=== PATIENT | female | born 1980 | race Caucasian/White ===

== ENCOUNTER 2017-01-20 15:34 | Emergency (ER) | payer OTHER ==
[2017-01-20] MEDS ORDERED: ONDANSETRON 4 MG/2 ML VIAL IVP STA (16:10)
[2017-01-20] MEDS ORDERED: LORazepam 2 MG/ML SYRINGE IV STA ×2 (16:10→17:53)
[2017-01-20] MEDS ORDERED: SODIUM CHLORIDE 0.9% 1,000 ML IV STA (16:10)
[2017-01-20] MEDS ORDERED: THIAMINE 100 MG/ML 2 ML VIAL IM STA (16:10)
[2017-01-20 16:56] LABS: Basophils # (A) 0.1 k/uL (0-0.2); Basophils % (A) 1 %; CH 31.8; CHCM 34.6; Eosinophils # (A) 0.1 k/uL (0-0.7); Eosinophils % (A) 3 %; HCT 43.5 % (34.0-46.0); HDW 2.23; HGB 14.7 gm/dL (11.4-16.0); Luc # (Auto) 0.16; Luc % (Auto) 3; Lymphocytes # (A) 1.8 k/uL (1.0-4.8); Lymphocytes % (A) 32 %; MCH 31.1 pg (25.0-35.0); MCHC 33.7 g/dL (31.0-37.0); MCV 92.2 fL (80.0-100.0); Mean Platelet Volume 6.4; Monocytes # (A) 0.2 k/uL (0-1.0); Monocytes % (A) 4 %; Neutrophils # (A) 3.2 k/uL (1.3-7.7); Neutrophils % (A) 57 %; RBC 4.72 m/uL (3.80-5.40); RDW 12.8 % (11.5-15.5); WBC 5.5 k/uL (3.8-10.6); WBC (Perox) 5.74
[2017-01-20 16:57] LABS: Appearance,Urine Clear (Clear); Bilirubin,Urine Negative (Negative); Glucose,Urine (UA) Negative (Negative); Ketones,Urine Negative (Negative); Leukocyte Esterase,Urine Negative (Negative); Nitrite,Urine Negative (Negative); PH, Urine 5.5 (5.0-8.0); Protein,Urine Negative (Negative); Specific Gravity,Urine 1.003 (1.001-1.035); UA Billing (MACRO vs. MICRO) CHEM; Urobilinogen,Urine <2.0 mg/dL (<2.0)
--- NOTE | 2017-01-20 17:11 | ED ---
Nausea/Vomiting/Diarrhea HPI - General Source: patient, RN notes reviewed Mode of arrival: ambulatory Limitations: no limitations <Jair Wilde - Last Filed: 01/20/17 17:07> <Leo Garcia - Last Filed: 01/20/17 20:42> <Elie Pena - Last Filed: 01/21/17 00:06> - General Chief complaint: Nausea/Vomiting/Diarrhea Stated complaint: Vomiting/Nausea/Anxiety Time Seen by Provider: 01/20/17 16:10 - History of Present Illness Initial comments: 36-year-old female presents emergency Department chief complaint of alcohol withdrawal. Patient states over the last week she's been drinking 15 beers daily. Patient tried to her primary care physician for this though she states that they were not very helpful that they give her Abilify which is not helping. Patient states that she has no known psychiatric problems such as schizophrenia or bipolar disorder. Patient states that she's been vomiting only. This is by drinking more. Patient denies any alcohol use today. Patient states that she is recovering alcoholic. Patient states she relapsed 1 week ago. Patient denies abdominal pain no history of pancreatitis. Patient denies illicit drug use. (Jair Wilde) - Related Data Home Medications Medication Instructions Recorded Confirmed ARIPiprazole [Abilify] 2 mg PO DAILY 01/20/17 01/20/17 Ondansetron Odt [Zofran Odt] 4 - 8 mg PO Q8HR PRN 01/20/17 01/20/17 Vivitrol Injection 380mg 380 mg IM Q28D 01/20/17 01/20/17 Previous Rx's Medication Instructions Recorded LORazepam [Ativan] 1 mg PO TID PRN #8 tab 01/21/17 Allergies Allergy/AdvReac Type Severity Reaction Status Date / Time No Known Allergies Allergy Verified 01/20/17 16:05 Review of Systems ROS Other: All systems not noted in ROS Statement are negative. <Jair Wilde - Last Filed: 01/20/17 17:07> ROS Other: All systems not noted in ROS Statement are negative. <Leo Garcia - Last Filed: 01/20/17 20:42> ROS Other: All systems not noted in ROS Statement are negative. <Elie Pena - Last Filed: 01/21/17 00:06> ROS Statement: Those systems with pertinent positive or pertinent negative responses have been documented in the HPI. Past Medical History Past Medical History: Hyperlipidemia Additional Past Medical History / Comment(s): alcoholic History of Any Multi-Drug Resistant Organisms: None Reported Past Surgical History: No Surgical Hx Reported Past Anesthesia/Blood Transfusion Reactions: No Reported Reaction Past Psychological History: Anxiety, Depression Smoking Status: Current some day smoker Past Alcohol Use History: Abuse, Daily, Heavy Past Drug Use History: None Reported - Past Family History Father Family Medical History: Coronary Artery Disease (CAD) <Jair Wilde M - Last Filed: 01/20/17 17:07> General Exam Limitations: no limitations General appearance: alert, in no apparent distress Head exam: Present: atraumatic, normocephalic, normal inspection Respiratory exam: Present: normal lung sounds bilaterally. Absent: respiratory distress, wheezes, rales, rhonchi, stridor Cardiovascular Exam: Present: normal rhythm, tachycardia, normal heart sounds. Absent: systolic murmur, diastolic murmur, rubs, gallop, clicks GI/Abdominal exam: Present: soft, normal bowel sounds. Absent: distended, tenderness, guarding, rebound, rigid Neurological exam: Present: alert, oriented X3, CN II-XII intact Skin exam: Present: warm, dry, intact, normal color. Absent: rash <Jair Wilde - Last Filed: 01/20/17 17:07> General appearance: alert, in no apparent distress, appears intoxicated Head exam: Present: atraumatic, normocephalic, normal inspection Eye exam: Present: normal appearance, PERRL, EOMI. Absent: scleral icterus, conjunctival injection, periorbital swelling ENT exam: Present: normal exam, mucous membranes moist Neck exam: Present: normal inspection. Absent: tenderness, meningismus, lymphadenopathy Respiratory exam: Present: normal lung sounds bilaterally. Absent: respiratory distress, wheezes, rales, rhonchi, stridor Cardiovascular Exam: Present: regular rate, normal rhythm, normal heart sounds. Absent: systolic murmur, diastolic murmur, rubs, gallop, clicks GI/Abdominal exam: Present: soft, normal bowel sounds. Absent: distended, tenderness, guarding, rebound, rigid Extremities exam: Present: normal inspection, full ROM, normal capillary refill. Absent: tenderness, pedal edema, joint swelling, calf tenderness Back exam: Present: normal inspection Neurological exam: Present: alert, oriented X3, CN II-XII intact Psychiatric exam: Present: normal affect, normal mood Skin exam: Present: warm, dry, intact, normal color. Absent: rash <Leo Garcia - Last Filed: 01/20/17 20:42> Course <Jair Wilde - Last Filed: 01/20/17 17:07> <Leo Garcia - Last Filed: 01/20/17 20:42> <Elie Pena - Last Filed: 01/21/17 00:06> Vital Signs 01/20/17 01/20/17 01/20/17 15:57 16:55 18:33 Temperature 98.2 F 97.9 F 98.5 F Pulse Rate 132 H 117 H 127 H Respiratory 22 18 18 Rate Blood Pressure 123/67 123/74 101/59 O2 Sat by Pulse 95 95 95 Oximetry - Reevaluation(s) Reevaluation #1: 01/20/17 20:42 Patient's, drinking alcohol and she is brought into the emergency room, again patient came in the ER for possible withdrawal (Leo Garcia) Medical Decision Making - Lab Data Result diagrams: 01/20/17 16:39 <Jair Wilde - Last Filed: 01/20/17 17:07> - Lab Data Result diagrams: 01/20/17 16:39 01/20/17 16:39 <Leo Garcia - Last Filed: 01/20/17 20:42> - Lab Data Result diagrams: 01/20/17 16:39 01/20/17 16:39 <Elie Pena - Last Filed: 01/21/17 00:06> - Medical Decision Making Patient reevaluated and resting comfortably in bed. Patient is alert and oriented 3. Steady gait. Patient updated on results and need for follow-up. Patient states she is trying to get into [facility]. (Elie Pena) - Lab Data Lab Results 01/20/17 01/20/17 01/20/17 Range/Units 16:39 16:39 16:39 WBC 5.5 (3.8-10.6) k/uL RBC 4.72 (3.80-5.40) m/uL Hgb 14.7 (11.4-16.0) gm/dL Hct 43.5 (34.0-46.0) % MCV 92.2 (80.0-100.0) fL MCH 31.1 (25.0-35.0) pg MCHC 33.7 (31.0-37.0) g/dL RDW 12.8 (11.5-15.5) % Plt Count 248 (150-450) k/uL Neutrophils % 57 % Lymphocytes % 32 % Monocytes % 4 % Eosinophils % 3 % Basophils % 1 % Neutrophils # 3.2 (1.3-7.7) k/uL Lymphocytes # 1.8 (1.0-4.8) k/uL Monocytes # 0.2 (0-1.0) k/uL Eosinophils # 0.1 (0-0.7) k/uL Basophils # 0.1 (0-0.2) k/uL Sodium 140 (137-145) mmol/L Potassium 4.3 (3.5-5.1) mmol/L Chloride 101 (98-107) mmol/L Carbon Dioxide 21 L (22-30) mmol/L Anion Gap 18 mmol/L BUN 8 (7-17) mg/dL Creatinine 0.67 (0.52-1.04) mg/dL Est GFR (MDRD) Af Amer >60 (>60 ml/min/1.73 sqM) Est GFR (MDRD) Non-Af >60 (>60 ml/min/1.73 sqM) Glucose 133 H (74-99) mg/dL Calcium 9.2 (8.4-10.2) mg/dL Magnesium 1.9 (1.6-2.3) mg/dL Total Bilirubin 0.7 (0.2-1.3) mg/dL AST 43 H (14-36) U/L ALT 32 (9-52) U/L Alkaline Phosphatase 80 (38-126) U/L Total Protein 7.3 (6.3-8.2) g/dL Albumin 4.4 (3.5-5.0) g/dL Amylase 63 (30-110) U/L Lipase 108 (23-300) U/L Urine Color Light Yellow Urine Appearance Clear (Clear) Urine pH 5.5 (5.0-8.0) Ur Specific [place] 1.003 (1.001-1.035) Urine Protein Negative (Negative) Urine Glucose (UA) Negative (Negative) Urine Ketones Negative (Negative) Urine Blood Negative (Negative) Urine Nitrite Negative (Negative) Urine Bilirubin Negative (Negative) Urine Urobilinogen <2.0 (<2.0) mg/dL Ur Leukocyte Esterase Negative (Negative) Disposition <Jair Wilde - Last Filed: 01/20/17 17:07> <Leo Garcia - Last Filed: 01/20/17 20:42> <Elie Pena - Last Filed: 01/21/17 00:06> Clinical Impression: Alcoholic intoxication Disposition: HOME SELF-CARE Condition: Stable Instructions: Abuse of Alcohol (ED), Alcohol Intoxication (ED), Alcohol Dependence (ED) Additional Instructions: Please follow-up at [facility], call again tomorrow. Discontinue alcohol use. Return for worsening symptoms or other concerns. Ativan if needed for alcohol withdrawal. Do not take Ativan with alcohol. Please provide list of substance abuse follow-up facilities. Prescriptions: LORazepam [Ativan] 1 mg PO TID PRN #8 tab PRN Reason: Anxiety Referrals: Marietta Gambino DO [Primary Care Provider] - 1-2 days
[2017-01-20 17:12] LABS: ALT 32 U/L (9-52); AST 43 U/L (14-36); Alkaline Phosphatase 80 U/L (38-126); Amylase 63 U/L (30-110); Anion Gap 18 mmol/L; Blood Urea Nitrogen 8 mg/dL (7-17); Calcium 9.2 mg/dL (8.4-10.2); Carbon Dioxide 21 mmol/L (22-30); Chloride 101 mmol/L (98-107); Glucose 133 mg/dL (74-99); Magnesium 1.9 mg/dL (1.6-2.3); Non-African American GFR(MDRD) >60 (>60 ml/min/1.73 sqM); Potassium 4.3 mmol/L (3.5-5.1); Sodium 140 mmol/L (137-145); Total Bilirubin 0.7 mg/dL (0.2-1.3); Total Protein 7.3 g/dL (6.3-8.2)
[2017-01-20] MEDS ORDERED: SODIUM CHLORIDE 0.9% 1,000 ML with MVI, ADULT NO.4 WITH VIT K 10 ML, THIAMINE 100 MG, F... IV ONE ×4 (17:53)
[2017-01-20 18:35] VITALS: TEMP 98.5
[2017-01-21] MEDS ORDERED: ONDANSETRON 4 MG ODT STARTER PACK 2 TAB BTL PO STA (00:20)
[2017-01-21 00:24] VITALS: BP 104/62; PULSE 98; RESP 16
== END 2017-01-21 00:29 | disposition home or self-care (01) ==
LOC: EC 15:34
DX: F10.129 Alcohol abuse with intoxication, unspecified (principal); R11.2 Nausea with vomiting, unspecified; F41.9 Anxiety disorder, unspecified; F32.9 Major depressive disorder, single episode, unspecified; F17.200 Nicotine dependence, unspecified, uncomplicated; Z79.899 Other long term (current) drug therapy
CPT/HCPCS: 99284; 96365; 96366 ×2; 96375 ×2; 96376; 96361; 96372; 82075; 36415; 80053; 82150; 83690; 83735; 85025; 81003; J2060; J3411; J2405; S0119

== ENCOUNTER 2017-01-27 13:12 | Observation (INO) | payer OTHER ==
[2017-01-27] MEDS ORDERED: LORazepam 2 MG/ML SYRINGE IV PRN (14:12)
--- NOTE | 2017-01-27 14:37 | ED ---
General Adult HPI - General Chief complaint: Psychiatric Symptoms Stated complaint: Psych Time Seen by Provider: 01/27/17 13:59 Source: patient, RN notes reviewed, old records reviewed Mode of arrival: ambulatory - History of Present Illness Initial comments: Chief complaint history of present illness a 36-year-old female here with a request to be admitted the hospital because of alcohol withdrawal and alcoholism. The patient reports she will be going into [place] in 5 days. Patient states she normally drinks 15 beers per day she had one beer this morning current alcohol 0.115. Patient denies other drug use. Patient states that when she tries to stop drinking she has withdrawal problems. - Related Data Home Medications Medication Instructions Recorded Confirmed ARIPiprazole [Abilify] 2 mg PO DAILY 01/20/17 01/20/17 Ondansetron Odt [Zofran Odt] 4 - 8 mg PO Q8HR PRN 01/20/17 01/20/17 Vivitrol Injection 380mg 380 mg IM Q28D 01/20/17 01/20/17 Previous Rx's Medication Instructions Recorded LORazepam [Ativan] 1 mg PO TID PRN #8 tab 01/21/17 Allergies Allergy/AdvReac Type Severity Reaction Status Date / Time No Known Allergies Allergy Verified 01/27/17 13:39 Review of Systems ROS Statement: Those systems with pertinent positive or pertinent negative responses have been documented in the HPI. Review of systems. Patient's upset and crying because of her alcohol problem states she's afraid she'll she continues to drink. Denies headache chest pain shortness breath GI/ problems. Patient did drink alcohol and smoking. All systems are reviewed. Past medical problems significant for anxiety depression. Denies any surgeries. Family history multiple alcoholics. Patient denies any ALLERGIES does not smoke patient states she's not alcoholic ROS Other: All systems not noted in ROS Statement are negative. Past Medical History Past Medical History: Hyperlipidemia Additional Past Medical History / Comment(s): alcoholic History of Any Multi-Drug Resistant Organisms: None Reported Past Surgical History: No Surgical Hx Reported Past Anesthesia/Blood Transfusion Reactions: No Reported Reaction Past Psychological History: Anxiety, Depression Smoking Status: Current some day smoker Past Alcohol Use History: Abuse, Daily, Heavy Past Drug Use History: None Reported - Past Family History Father Family Medical History: Coronary Artery Disease (CAD) General Exam - General Exam Comments Initial Comments: General: The patient is awake and alert, crying and anxious because of her addiction to alcohol. Examination was done in the presence of Signiant Hailee. Vital signs temp 97.9 pulse 111. Respiratory rate 18 pulse ox 96% room air blood pressure 121/79 Eye: Pupils are equal, round and reactive to light, extra-ocular movements are intact ; there is normal conjunctiva bilaterally. No signs of icterus. Ears, nose, mouth and throat: There are moist mucous membranes and no oral lesions. Neck: The neck is supple, there is no tenderness no anterior cervical lymphadenopathy. Cardiovascular: Tachycardic heart rate, 111.. No murmur, rub or gallop is appreciated. Respiratory: Lungs are clear to auscultation, respirations are non-labored, breath sounds are equal. No wheezes, stridor, rales, or rhonchi. Gastrointestinal: Soft, non-distended, non-tender abdomen without masses or organomegaly noted. There is no rebound or guarding present. No CVA tenderness. Bowel sounds are unremarkable. Back: There is no tenderness to palpation in the midline. There is no obvious deformity. No rashes noted. Musculoskeletal: Normal ROM, no tenderness, There is no pedal edema. There is no calf tenderness or swelling. Sensation intact. Pulses equal bilaterally 2+. Neurological: CN II-XII intact, There are no obvious motor or sensory deficits. Coordination appears grossly intact. Speech is normal. No evidence of a neuro deficits, no tremors. Skin: Skin is warm and dry and no rashes or lesions are noted. Psychiatric: Has alcohol dependency and history of anxiety and depression. Course Vital Signs 01/27/17 13:32 Temperature 97.9 F Pulse Rate 111 H Respiratory 18 Rate Blood Pressure 121/79 O2 Sat by Pulse 96 Oximetry Medical Decision Making - Medical Decision Making Alcohol. Breathalyzer was 0.115. Patient will be admitted to Dr. Harrell for alcohol withdrawal syndrome. Disposition Clinical Impression: Alcohol withdrawal Disposition: ADMITTED IP TO THIS HOSP Condition: Fair
[2017-01-27] MEDS ORDERED: NALOXONE 0.4 MG/ML 1 ML VIAL IV PRN (14:39)
[2017-01-27 14:57] LABS: Basophils # (A) 0.1 k/uL (0-0.2); Basophils % (A) 2 %; CH 32.3; CHCM 34.5; Eosinophils # (A) 0.1 k/uL (0-0.7); Eosinophils % (A) 2 %; HDW 2.11; Luc # (Auto) 0.14; Luc % (Auto) 3; Lymphocytes # (A) 1.3 k/uL (1.0-4.8); Lymphocytes % (A) 30 %; MCH 31.3 pg (25.0-35.0); MCHC 33.3 g/dL (31.0-37.0); Mean Platelet Volume 6.8; Monocytes # (A) 0.4 k/uL (0-1.0); Monocytes % (A) 9 %; Neutrophils # (A) 2.3 k/uL (1.3-7.7); Neutrophils % (A) 54 %; RBC 4.47 m/uL (3.80-5.40); RDW 14.2 % (11.5-15.5); WBC 4.3 k/uL (3.8-10.6); WBC (Perox) 4.25
[2017-01-27] MEDS ORDERED: SODIUM CHLORIDE 0.9% 1,000 ML with MVI, ADULT NO.4 WITH VIT K 10 ML, THIAMINE 100 MG, F... IV ONE ×4 (15:00)
[2017-01-27 15:02] LABS: INR 1.1 (<1.1); Prothrombin Time 10.9 sec (9.0-12.0)
[2017-01-27 15:17] LABS: ALT 27 U/L (9-52); AST 45 U/L (14-36); Alkaline Phosphatase 71 U/L (38-126); Anion Gap 14 mmol/L; Blood Urea Nitrogen 10 mg/dL (7-17); Calcium 9.3 mg/dL (8.4-10.2); Carbon Dioxide 21 mmol/L (22-30); Chloride 100 mmol/L (98-107); Glucose 110 mg/dL (74-99); Non-African American GFR(MDRD) >60 (>60 ml/min/1.73 sqM); Potassium 4.4 mmol/L (3.5-5.1); Sodium 135 mmol/L (137-145); Total Bilirubin 0.8 mg/dL (0.2-1.3); Total Protein 7.4 g/dL (6.3-8.2)
[2017-01-27] MEDS ORDERED: NICOTINE 14MG/24HR PATCH TRANSDERM STA (15:26)
[2017-01-27] MEDS: LORazepam 2 MG/ML SYRINGE IV PRN ×4 (16:32→22:03)
[2017-01-27] MEDS: ONDANSETRON 4 MG/2 ML VIAL IVP PRN (16:32)
[2017-01-27] MEDS: FAMOTIDINE 20 MG TAB PO SCH (21:18)
[2017-01-28] MEDS: LORazepam 2 MG/ML SYRINGE IV PRN ×9 (00:07→20:18)
[2017-01-28] MEDS: ONDANSETRON 4 MG/2 ML VIAL IVP PRN ×3 (00:07→17:07)
[2017-01-28] MEDS: IBUPROFEN 400 MG TAB PO PRN ×3 (04:08→17:06)
[2017-01-28] MEDS ORDERED: ARIPiprazole 2 MG TAB PO SCH (09:00)
[2017-01-28] MEDS: FAMOTIDINE 20 MG TAB PO SCH ×2 (09:26→21:47)
[2017-01-28] MEDS ORDERED: ENOXAPARIN 40 MG/0.4 ML SYRINGE SQ STA (12:41)
--- NOTE | 2017-01-28 12:41 | P.HPIM ---
History of Present Illness H&P Date: 01/28/17 Chief Complaint: Alcohol withdrawal Patient is a 36-year-old female who presented to [facility] emergency room due to alcohol withdrawal symptoms, patient states that she has known history of excessive alcohol intake, she has tried to quit many times, she is maintained on monthly injections at her primary care physician, however she missed her last injection. And started drinking again, she was unable to quit drinking she was drinking in the morning, and when she tried to slow down and she was having headache sweating and the tremors, she felt that she needed help and presented to emergency room. She stated that she has contacted [facility] for alcohol withdrawal program however her appointment will be a week from today and she felt she was unable to wait this long. Past Medical History Past Medical History: Hyperlipidemia Additional Past Medical History / Comment(s): alcoholic History of Any Multi-Drug Resistant Organisms: None Reported Past Surgical History: No Surgical Hx Reported Past Anesthesia/Blood Transfusion Reactions: No Reported Reaction Additional Past Anesthesia/Blood Transfusion Reaction / Comment(s): ;[place] in a 2 story house (w/daughter) has 4-5 front steps. 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 Past Psychological History: Anxiety, Depression Smoking Status: Former smoker Past Alcohol Use History: Abuse, Daily, Heavy Additional Past Alcohol Use History / Comment(s): pt stated has been drinking for past 10 days 15 beers per day-before this had'nt drank in 6 monhts.started smoking age 12, quit age 24 Past Drug Use History: None Reported - Past Family History Father Family Medical History: Coronary Artery Disease (CAD) Mother Family Medical History: No Reported History Medications and Allergies Home Medications Medication Instructions Recorded Confirmed Type Vivitrol Injection 380mg 380 mg IM Q28D 01/20/17 01/27/17 History Cyanocobalamin (Vitamin B-12) 1,000 mcg PO DAILY 01/27/17 01/27/17 History [Vitamin B-12] Multivitamins, Thera [Multivitamin 1 tab PO DAILY 01/27/17 01/27/17 History (formulary)] Sertraline [Zoloft] 100 mg PO DAILY 01/27/17 01/27/17 History Zinc 50 mg PO DAILY 01/27/17 01/27/17 History chlordiazePOXIDE HCL 25 mg PO TID 01/27/17 01/27/17 History lamoTRIgine [LaMICtal] 25 mg PO DAILY 01/27/17 01/27/17 History Allergies Allergy/AdvReac Type Severity Reaction Status Date / Time No Known Allergies Allergy Verified 01/27/17 15:15 Physical Exam Vitals: Vital Signs Temp Pulse Pulse Pulse Resp BP BP 01/28/17 07:00 97.0 F L 73 14 110/63 01/27/17 23:00 98.8 F 89 16 109/65 01/27/17 16:42 97.5 F L 110 H 16 168/52 01/27/17 15:40 120 H 20 150/81 Pulse Ox 01/28/17 07:00 96 01/27/17 23:00 98 01/27/17 16:42 95 01/27/17 15:40 96 Intake and Output 01/27/17 01/28/17 01/28/17 22:59 06:59 14:59 Other: # Voids 1 3 In general patient is alert and oriented 3 HEENT head normocephalic and atraumatic Neck is supple no JVD no goiter no lymphadenopathy Chest exam reveals a few scattered crackles no wheezing Cardiac exam reveals regular heart sounds no gallops no murmurs Abdomen is soft nontender no organomegaly Extremity exam reveals no edema no cyanosis or clubbing Results CBC & Chem 7: 01/27/17 14:43 01/27/17 14:43 Labs: Abnormal Lab Results - Last 24 Hours (Table) 01/27/17 01/27/17 Range/Units 14:43 14:43 Sodium 135 L (137-145) mmol/L Carbon Dioxide 21 L (22-30) mmol/L Glucose 110 H (74-99) mg/dL AST 45 H (14-36) U/L U Benzodiazepines Scrn Detected H (NotDetected) Thrombosis Risk Factor Assmnt - Choose All That Apply Any of the Below Risk Factors Present?: No Other Risk Factors: No Other congenital or acquired thrombophilia - If yes, enter type in comment: No Thrombosis Risk Factor Assessment Level: Very Low Risk Assessment and Plan Plan: #1 alcohol withdrawal symptoms, patient is admitted to medical floor she was started on Ativan, consultation for psychiatry was initiated #2 depression, patient was maintained on Zoloft 100 mg daily at home will resume , patient was also given Abilify by her primary care physician, however she states that she read the side effect and she was afraid to take it she does not wish to start at this time. #3 for DVT prophylaxis patient will be given Lovenox once daily for GI prophylaxis she was started on Pepcid At this time we are awaiting input from psychiatry she is stable from medical standpoint she can be moved as a psych unit or she can be transferred to [facility] program if there is any opening.
[2017-01-28] MEDS: SERTRALINE 100 MG TAB PO SCH (13:26)
[2017-01-28 15:57] VITALS: BMI 21.6
[2017-01-29] MEDS: LORazepam 2 MG/ML SYRINGE IV PRN ×4 (01:41→11:08)
[2017-01-29] MEDS: ONDANSETRON 4 MG/2 ML VIAL IVP PRN ×2 (01:41→08:55)
[2017-01-29 07:32] VITALS: BP 115/79; PULSE 113; RESP 20; TEMP 97.9
[2017-01-29] MEDS: SERTRALINE 100 MG TAB PO SCH (08:22)
[2017-01-29] MEDS: FAMOTIDINE 20 MG TAB PO SCH (08:22)
[2017-01-29] MEDS: IBUPROFEN 400 MG TAB PO PRN (08:55)
[2017-01-29 09:54] LABS: Basophils % (A) 1 %; CH 31.3; CHCM 33.1; Eosinophils # (A) 0.2 k/uL (0-0.7); Eosinophils % (A) 4 %; HCT 40.7 % (34.0-46.0); HDW 2.21; HGB 13.7 gm/dL (11.4-16.0); Luc # (Auto) 0.14; Luc % (Auto) 3; Lymphocytes # (A) 1.4 k/uL (1.0-4.8); Lymphocytes % (A) 34 %; MCH 32.1 pg (25.0-35.0); MCHC 33.8 g/dL (31.0-37.0); MCV 94.9 fL (80.0-100.0); Mean Platelet Volume 6.8; Monocytes # (A) 0.4 k/uL (0-1.0); Monocytes % (A) 10 %; Neutrophils # (A) 1.9 k/uL (1.3-7.7); Neutrophils % (A) 47 %; RBC 4.29 m/uL (3.80-5.40); RDW 13.9 % (11.5-15.5); WBC (Perox) 4.18
[2017-01-29 10:10] LABS: ALT 28 U/L (9-52); AST 35 U/L (14-36); Alkaline Phosphatase 57 U/L (38-126); Anion Gap 9 mmol/L; Blood Urea Nitrogen 6 mg/dL (7-17); Calcium 9.2 mg/dL (8.4-10.2); Carbon Dioxide 24 mmol/L (22-30); Chloride 103 mmol/L (98-107); Glucose 67 mg/dL (74-99); Non-African American GFR(MDRD) >60 (>60 ml/min/1.73 sqM); Potassium 3.6 mmol/L (3.5-5.1); Sodium 136 mmol/L (137-145); Total Bilirubin 0.7 mg/dL (0.2-1.3); Total Protein 7.2 g/dL (6.3-8.2)
--- NOTE | 2017-01-29 13:45 | P.DS ---
Providers Date of admission: 01/27/17 14:39 Expected date of discharge: 01/29/17 Attending physician: Adan Harrell Consults: 01/28/17 12:39 Consult Physician Routine Consulting Provider: Messi Trinh Consult Reason/Comments: Alcoholism, anxiety Do you want consulting provider notified?: Yes Primary care physician: Marietta Gambino [facility] Course: Diagnosis on discharge #1 alcohol abuse #2 early alcohol withdrawal #3 anxiety disorder #4 hypertension Hospital course Patient is a 36-year-old female patient of [facility] who states that she has been drinking excessively she was afraid she might have severe adverse Health issues because of her excessive drinking she tried to quit drinking but she was having headache sweating and palpitations she decided to come to emergency room. Patient has a known history of difficulty with alcohol abuse, she has been followed by psychologist she is also followed at [facility] she was receiving Vivitriol injections every 28 days however she missed her last injection. On presentation patient had slightly elevated AST which normalized on 01/29/2017 Patient was having anxiety she was given Ativan and improved significantly Consultation for psychiatry was initiated however patient was feeling much better on 01/29/2017 she was asking to be discharged She was not seen by psychiatry during this admission Patient was doing well she stated that she is willing to pear picker her Vivitriol injection from [facility] pharmacy and take it to [facility] so they would give it to her. [facility] where contacted and activity to the previous plan. Patient also was given a prescription for Ativan 0.5 mg every 8 hours as needed #15 And a prescription for thiamine 100 mg once daily for 10 days Otherwise she will continue her same home medication she will be followed at [facility] She also has appointment at [place] on Friday for alcohol detox Patient Condition at Discharge: Fair Plan - Discharge Summary New Discharge Prescriptions: Thiamine [Vitamin B-1] 100 mg PO DAILY #10 tablet Discharge Medication List Vivitrol Injection 380mg 380 mg IM Q28D 01/20/17 [History] Multivitamins, Thera [Multivitamin (formulary)] 1 tab PO DAILY 01/27/17 [History ] Sertraline [Zoloft] 100 mg PO DAILY 01/27/17 [History] Zinc 50 mg PO DAILY 01/27/17 [History] lamoTRIgine [LaMICtal] 25 mg PO DAILY 01/27/17 [History] Thiamine [Vitamin B-1] 100 mg PO DAILY #10 tablet 01/29/17 [Rx] Follow up Appointment(s)/Referral(s): Marietta Gambino DO [Primary Care Provider] - 1-2 days Patient Instructions/Handouts: Abuse of Alcohol (DC) Activity/Diet/Wound Care/Special Instructions: Appointment with psychiatrist, Dr Tobar on 02-12-17 11:00 am Appointment with therapist, Genaro Thomas on 02-06-17 2:30 pm Low fat diet. No drinking alcohol, references given.
--- NOTE | 2017-01-29 16:04 | P.CN ---
Psychiatric Consult - . Consult date: 01/29/17 Consult:: The patient was discharged from medicine service before we could complete the consult. 01/29/17 16:04
== END 2017-01-29 14:08 | disposition home or self-care (01) ==
LOC: EC 13:12 → 4MS4W 14:39 → INTOOBSV 14:39 → 4MS4W 15:46
PROVIDERS: ADMIT Internal Medicine; ATTEND Internal Medicine
DX: F10.239 Alcohol dependence with withdrawal, unspecified (principal); F32.9 Major depressive disorder, single episode, unspecified; F41.9 Anxiety disorder, unspecified; I10 Essential (primary) hypertension; Z79.899 Other long term (current) drug therapy; F17.200 Nicotine dependence, unspecified, uncomplicated; Y90.5 Blood alcohol level of 100-119 mg/100 ml
CPT/HCPCS: 96365; 96366 ×3; 96367; 82075; 99284; 36415; 80053 ×2; 85025 ×2; 85610; 81025; 80306; G0378 ×3; S4990; J2060 ×3; J3411; J2405 ×3

== ENCOUNTER 2017-01-31 01:52 | Emergency (ER) | payer OTHER ==
[2017-01-31] MEDS ORDERED: MAG HYDROX/AL HYDROX/SIMETH 30 ML CUP ONE (03:16)
[2017-01-31] MEDS ORDERED: ONDANSETRON 4 MG ODT STARTER PACK 2 TAB BTL ONE (03:16)
[2017-01-31] MEDS ORDERED: LIDOCAINE VISCOUS 2% 15 ML CUP ONE (03:16)
[2017-01-31] MEDS ORDERED: LORazepam 2 MG/ML SYRINGE ONE ×2 (03:16)
[2017-01-31] MEDS ORDERED: HYOSCYAMINE ELIXIR 250 MCG/10 ML BTL ONE (03:16)
[2017-01-31] MEDS ORDERED: CIMETIDINE HCL 300 MG/5 ML ONE (03:16)
[2017-01-31 06:45] LABS: Appearance,Urine Clear (Clear); Bilirubin,Urine Negative (Negative); Glucose,Urine (UA) Negative (Negative); Ketones,Urine Negative (Negative); Leukocyte Esterase,Urine Negative (Negative); Nitrite,Urine Negative (Negative); PH, Urine 5.5 (5.0-8.0); Particle Count 3245; Protein,Urine 1+ (Negative); RBC,Urine >182 /hpf (0-5); Squamous Epithelial Cell,Urine 2 /hpf (0-4); UA Billing (MACRO vs. MICRO) MICRO; Urobilinogen,Urine <2.0 mg/dL (<2.0); WBC,Urine 4 /hpf (0-5)
== END 2017-01-31 03:55 | disposition home or self-care (01) ==
LOC: EC 01:52
DX: F10.239 Alcohol dependence with withdrawal, unspecified (principal)
CPT/HCPCS: 80306; 81001; 81025; 82075; 96372; 99284

== ENCOUNTER 2017-04-08 18:49 | Emergency (ER) | payer OTHER ==
[2017-04-08] MEDS ORDERED: SODIUM CHLORIDE 0.9% 1,000 ML IV STA ×2 (19:39)
--- NOTE | 2017-04-08 19:44 | ED ---
Seizure HPI - General Chief Complaint: Seizure Stated Complaint: Seizure Time Seen by Provider: 04/08/17 19:23 Source: patient, RN notes reviewed, old records reviewed Mode of arrival: ambulatory Limitations: no limitations - History of Present Illness Initial Comments: 36-year-old female presents to the ED chief complaint of "seizure-like activity " for approximately 30 seconds today. Patient son supposedly recorded her having a seizure and then called his father. They then arrived to emergency department 30 minutes later. Patient reports that she is feeling fine but she does have some pressure in her head. She reports she also feels nauseated. Patient states that after the "seizure-like activity she was able to walk around and was acting normal. Patient reports that she recently was discharged from a drug and alcohol rehab facility approximately one week ago. Patient denies any recent drug or alcohol use. Patient states that she has no fever or chills, denies any history of falling or hitting her head. She reports that when she did have this activity she supposedly bit her tongue. Patient denies any chest pain, shortness of breath, abdominal pain, dysuria, hematuria or any other associated symptoms. - Related Data Home Medications Medication Instructions Recorded Confirmed Sertraline [Zoloft] 100 mg PO DAILY 01/27/17 04/08/17 Acetaminophen [Tylenol] 1,000 mg PO Q4-6H PRN 04/08/17 04/08/17 Allergies Allergy/AdvReac Type Severity Reaction Status Date / Time No Known Allergies Allergy Verified 04/08/17 19:45 Review of Systems ROS Statement: Those systems with pertinent positive or pertinent negative responses have been documented in the HPI. ROS Other: All systems not noted in ROS Statement are negative. Past Medical History Past Medical History: Hyperlipidemia Additional Past Medical History / Comment(s): alcoholic History of Any Multi-Drug Resistant Organisms: None Reported Past Surgical History: No Surgical Hx Reported Past Anesthesia/Blood Transfusion Reactions: No Reported Reaction Additional Past Anesthesia/Blood Transfusion Reaction / Comment(s): ;kirby in a 2 story house (w/daughter) has 4-5 front steps. 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 Past Psychological History: Anxiety, Depression Smoking Status: Former smoker Past Alcohol Use History: Abuse, Daily, Heavy Past Drug Use History: None Reported - Past Family History Father Family Medical History: Coronary Artery Disease (CAD) Mother Family Medical History: No Reported History General Exam - General Exam Comments Initial Comments: This is a 36-year-old female. Patient does not appear to be in any acute distress. Patient was alert and oriented. Patient does not appear to be typical for postictal behavior Limitations: no limitations General appearance: alert, in no apparent distress Head exam: Present: atraumatic, normocephalic, normal inspection Eye exam: Present: normal appearance, PERRL, EOMI. Absent: scleral icterus, conjunctival injection, periorbital swelling ENT exam: Present: normal exam, mucous membranes moist Neck exam: Present: normal inspection. Absent: tenderness, meningismus, lymphadenopathy Respiratory exam: Present: normal lung sounds bilaterally. Absent: respiratory distress, wheezes, rales, rhonchi, stridor Cardiovascular Exam: Present: regular rate, normal rhythm, normal heart sounds. Absent: systolic murmur, diastolic murmur, rubs, gallop, clicks GI/Abdominal exam: Present: soft, normal bowel sounds. Absent: distended, tenderness, guarding, rebound, rigid Extremities exam: Present: normal inspection, full ROM, normal capillary refill. Absent: tenderness, pedal edema, joint swelling, calf tenderness Back exam: Present: normal inspection Neurological exam: Present: alert, oriented X3, CN II-XII intact Expanded Patient oriented to: Present: person, place, time Speech: Present: fluid speech Cranial nerves: EOM's Intact: Normal, Gag Reflex: Normal, Tongue Deviation: Normal Cerebellar function: Finger to Nose: Normal Upper motor neuron: Pronator Drift: Normal Sensory exam: Upper Extremity Light Touch: Normal, Lower Extremity Light Touch: Normal Motor strength exam: RUE: 5, LUE: 5, RLE: 5, LLE: 5 Eye Response: (4) open spontaneously Motor Response: (6) obeys commands Verbal Response: (5) oriented [place] Total: 15 Psychiatric exam: Present: normal affect, normal mood Skin exam: Present: warm, dry, intact, normal color. Absent: rash Course Vital Signs 04/08/17 04/08/17 04/08/17 19:01 20:53 22:18 Temperature 98.2 F 97.0 F L 97.7 F Pulse Rate 85 65 66 Respiratory 20 18 18 Rate Blood Pressure 122/79 122/78 124/73 O2 Sat by Pulse 97 97 100 Oximetry - Reevaluation(s) Reevaluation #1: 04/08/17 22:17 Patient was reevaluated and resting comfortably in bed. Patient reports that she wants to go home and go to bed. Medical Decision Making - Medical Decision Making 36-year-old female presents to the ED chief complaint of "seizure-like activity " for approximately 30 seconds today. Patient son supposedly recorded her having a seizure and then called his father. They then arrived to emergency department 30 minutes later. Patient reports that she is feeling fine but she does have some pressure in her head. She reports she also feels nauseated. Patient states that after the "seizure-like activity she was able to walk around and was acting normal. Patient reports that she recently was discharged from a drug and alcohol rehab facility approximately one week ago. Patient was alert and oriented. No evidence of neurological deficits. Patient was very hostile to staff and was questioning all treatments. Patient does not appear to be postictal at this time. Patient's lab work was reviewed and negative for any acute process. Patient's urine did test positive for benzodiazepines. Patient warts that she has not taken one in the past 4 days. Discussed that her seizure could be due to benzodiazepine withdrawal as she did seem to stop abruptly from the treatment regimen. Patient was reevaluated and resting in bed. She denies any other physical complaints. Patient was suggested to be admitted for observation or depending on how she felt to go home and follow-up with her primary tomorrow. Patient reports that she wants to go home and go to sleep. She's been under a lot of stress lately and also reports that her daughter had a baby yesterday evening. Patient advised on return parameters and advised close follow-up with primary care provider. - Lab Data Result diagrams: 04/08/17 20:00 04/08/17 20:00 Lab Results 04/08/17 04/08/17 04/08/17 Range/Units 20:00 20:00 20:00 WBC 9.1 (3.8-10.6) k/uL RBC 4.23 (3.80-5.40) m/uL Hgb 13.5 (11.4-16.0) gm/dL Hct 42.1 (34.0-46.0) % MCV 99.5 (80.0-100.0) fL MCH 32.0 (25.0-35.0) pg MCHC 32.1 (31.0-37.0) g/dL RDW 16.4 H (11.5-15.5) % Plt Count 366 (150-450) k/uL Neutrophils % 78 % Lymphocytes % 10 % Monocytes % 8 % Eosinophils % 1 % Basophils % 1 % Neutrophils # 7.1 (1.3-7.7) k/uL Lymphocytes # 1.0 (1.0-4.8) k/uL Monocytes # 0.7 (0-1.0) k/uL Eosinophils # 0.1 (0-0.7) k/uL Basophils # 0.1 (0-0.2) k/uL Anisocytosis Slight Macrocytosis Slight Sodium 137 (137-145) mmol/L Potassium 4.0 (3.5-5.1) mmol/L Chloride 106 (98-107) mmol/L Carbon Dioxide 19 L (22-30) mmol/L Anion Gap 12 mmol/L BUN 10 (7-17) mg/dL Creatinine 0.68 (0.52-1.04) mg/dL Est GFR (MDRD) Af Amer >60 (>60 ml/min/1.73 sqM) Est GFR (MDRD) Non-Af >60 (>60 ml/min/1.73 sqM) Glucose 94 (74-99) mg/dL Calcium 10.4 H (8.4-10.2) mg/dL Total Bilirubin 0.5 (0.2-1.3) mg/dL AST 33 (14-36) U/L ALT 38 (9-52) U/L Alkaline Phosphatase 62 (38-126) U/L Total Protein 7.6 (6.3-8.2) g/dL Albumin 4.8 (3.5-5.0) g/dL Urine Color Yellow Urine Appearance Clear (Clear) Urine pH 5.5 (5.0-8.0) Ur Specific [place] 1.018 (1.001-1.035) Urine Protein Negative (Negative) Urine Glucose (UA) Negative (Negative) Urine Ketones 1+ H (Negative) Urine Blood Negative (Negative) Urine Nitrite Negative (Negative) Urine Bilirubin Negative (Negative) Urine Urobilinogen <2.0 (<2.0) mg/dL Ur Leukocyte Esterase Negative (Negative) Urine Opiates Screen Not Detected (NotDetected) Ur Oxycodone Screen Not Detected (NotDetected) Urine Methadone Screen Not Detected (NotDetected) Ur Propoxyphene Screen Not Detected (NotDetected) Ur Barbiturates Screen Not Detected (NotDetected) U Tricyclic Antidepress Not Detected (NotDetected) Ur Phencyclidine Scrn Not Detected (NotDetected) Ur Amphetamines Screen Not Detected (NotDetected) U Methamphetamines Scrn Not Detected (NotDetected) U Benzodiazepines Scrn Detected H (NotDetected) Urine Cocaine Screen Not Detected (NotDetected) U Marijuana (THC) Screen Not Detected (NotDetected) Serum Alcohol <10 mg/dL 04/08/17 22:31 EKG shows ventricular rate of 70 bpm. : 40 ms. QRS duration 80 ms. QT QTc is 382/412 ms. No evidence of ST elevation or T-wave inversion. No evidence of atrial or ventricular arrhythmias. Disposition Clinical Impression: History of seizure Disposition: HOME SELF-CARE Condition: Good Instructions: New-Onset Seizure in Adults (ED) Additional Instructions: Follow-up with your primary care provider tomorrow. Return to the emergency department if any alarming signs or symptoms occur. Referrals: Farida Eason MD [Primary Care Provider] - 1-2 days Jimenez Sandoval MD [STAFF PHYSICIAN] - 1-2 days Time of Disposition: 22:17
[2017-04-08 20:20] LABS: Anisocytosis Slight; Appearance,Urine Clear (Clear); Basophils # (A) 0.1 k/uL (0-0.2); Basophils % (A) 1 %; Bilirubin,Urine Negative (Negative); CH 33.6; CHCM 33.9; Eosinophils # (A) 0.1 k/uL (0-0.7); Eosinophils % (A) 1 %; Glucose,Urine (UA) Negative (Negative); HCT 42.1 % (34.0-46.0); HGB 13.5 gm/dL (11.4-16.0); Ketones,Urine 1+ (Negative); Leukocyte Esterase,Urine Negative (Negative); Luc # (Auto) 0.16; Luc % (Auto) 2; Lymphocytes % (A) 10 %; MCHC 32.1 g/dL (31.0-37.0); MCV 99.5 fL (80.0-100.0); Macrocytosis Slight; Mean Platelet Volume 6.6; Monocytes # (A) 0.7 k/uL (0-1.0); Monocytes % (A) 8 %; Neutrophils # (A) 7.1 k/uL (1.3-7.7); Neutrophils % (A) 78 %; Nitrite,Urine Negative (Negative); PH, Urine 5.5 (5.0-8.0); Protein,Urine Negative (Negative); RBC 4.23 m/uL (3.80-5.40); RDW 16.4 % (11.5-15.5); Specific Gravity,Urine 1.018 (1.001-1.035); UA Billing (MACRO vs. MICRO) CHEM; Urobilinogen,Urine <2.0 mg/dL (<2.0); WBC 9.1 k/uL (3.8-10.6); WBC (Perox) 9.42
[2017-04-08] MEDS ORDERED: ONDANSETRON 4 MG/2 ML VIAL IVP STA (20:20)
[2017-04-08 20:37] LABS: ALT 38 U/L (9-52); AST 33 U/L (14-36); Alcohol <10 mg/dL; Alkaline Phosphatase 62 U/L (38-126); Anion Gap 12 mmol/L; Blood Urea Nitrogen 10 mg/dL (7-17); Calcium 10.4 mg/dL (8.4-10.2); Carbon Dioxide 19 mmol/L (22-30); Chloride 106 mmol/L (98-107); Glucose 94 mg/dL (74-99); Non-African American GFR(MDRD) >60 (>60 ml/min/1.73 sqM); Sodium 137 mmol/L (137-145); Total Bilirubin 0.5 mg/dL (0.2-1.3); Total Protein 7.6 g/dL (6.3-8.2)
[2017-04-08 20:55] VITALS: RESP 18
[2017-04-08 22:19] VITALS: BP 124/73; PULSE 66; TEMP 97.7
== END 2017-04-08 22:27 | disposition home or self-care (01) ==
LOC: EC 18:49
DX: R56.9 Unspecified convulsions (principal); F32.9 Major depressive disorder, single episode, unspecified; Z87.891 Personal history of nicotine dependence; Z79.899 Other long term (current) drug therapy
CPT/HCPCS: 99285; 96374; 96361 ×2; 36415; 93005; 80053; 85025; 81003; 80306; 80320; J2405

== ENCOUNTER 2017-05-09 12:11 | Emergency (ER) | payer OTHER ==
[2017-05-09 12:25] VITALS: RESP 18
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
[2017-05-09 14:00] LABS: Anisocytosis Slight; Basophils % (A) 1 %; CH 33.5; CHCM 35.3; Eosinophils # (A) 0.1 k/uL (0-0.7); Eosinophils % (A) 3 %; HCT 41.1 % (34.0-46.0); HDW 2.11; HGB 14.1 gm/dL (11.4-16.0); Luc # (Auto) 0.16; Luc % (Auto) 4; Lymphocytes # (A) 1.1 k/uL (1.0-4.8); Lymphocytes % (A) 30 %; MCH 32.6 pg (25.0-35.0); MCHC 34.3 g/dL (31.0-37.0); MCV 95.1 fL (80.0-100.0); Mean Platelet Volume 7.3; Monocytes # (A) 0.3 k/uL (0-1.0); Monocytes % (A) 9 %; Neutrophils % (A) 54 %; RBC 4.32 m/uL (3.80-5.40); RDW 16.8 % (11.5-15.5); WBC 3.8 k/uL (3.8-10.6); WBC (Perox) 3.82
[2017-05-09 14:11] LABS: Prothrombin Time 10.1 sec (9.0-12.0)
[2017-05-09 14:13] LABS: ALT 74 U/L (9-52); AST 94 U/L (14-36); Alkaline Phosphatase 57 U/L (38-126); Anion Gap 15 mmol/L; Blood Urea Nitrogen 5 mg/dL (7-17); Calcium 8.8 mg/dL (8.4-10.2); Carbon Dioxide 20 mmol/L (22-30); Chloride 101 mmol/L (98-107); Glucose 114 mg/dL (74-99); Non-African American GFR(MDRD) >60 (>60 ml/min/1.73 sqM); Potassium 4.1 mmol/L (3.5-5.1); Sodium 136 mmol/L (137-145); Total Bilirubin 0.3 mg/dL (0.2-1.3)
[2017-05-09] MEDS ORDERED: SODIUM CHLORIDE 0.9% 1,000 ML with MVI, ADULT NO.4 WITH VIT K 10 ML, THIAMINE 100 MG, F... IV ONE ×4 (14:40)
[2017-05-09] MEDS ORDERED: chlordiazePOXIDE 25 MG CAP PO STA (14:55)
[2017-05-09 15:30] VITALS: BP 106/69; PULSE 94; TEMP 97.4
== END 2017-05-09 15:36 | disposition home or self-care (01) ==
LOC: EC 12:11
DX: F10.239 Alcohol dependence with withdrawal, unspecified (principal); G40.909 Epilepsy, unspecified, not intractable, without status epilepticus; F32.9 Major depressive disorder, single episode, unspecified; F41.9 Anxiety disorder, unspecified; Z87.891 Personal history of nicotine dependence; Z79.899 Other long term (current) drug therapy
CPT/HCPCS: 36415; 80053; 85025; 85610; 80306; 99284; 96365; J3411

== ENCOUNTER → 2017-10-28 | Outpatient (CLI) | payer OTHER ==
--- NOTE | 2017-10-28 14:39 | MM ---
Reason for exam: screening (asymptomatic). Baseline mammogram. History: Took hormonal contraceptives for 3 years. Physical Findings: Nurse did not find any significant physical abnormalities on exam. MG Screening Mammo w CAD Bilateral CC and MLO view(s) were taken. The breast tissue is heterogeneously dense. This may lower the sensitivity of mammography. Finding: There are regional calcifications in the upper outer quadrant of the right breast. These results were verbally communicated with the patient and result sheet given to the patient on 10/28/17. ASSESSMENT: Incomplete: need additional imaging evaluation, BI-RAD 0 RECOMMENDATION: Special view mammogram of the right breast. [facility] will attempt to contact patient to return for supplemental views.
--- NOTE | 2017-10-28 14:41 | MM ---
Reason for exam: additional evaluation requested from abnormal screening. History: Took hormonal contraceptives for 3 years. MG Work Up Mamm w CAD RT CC with magnification, ML with magnification, and ML view(s) were taken of the right breast. The breast tissue is heterogeneously dense. This may lower the sensitivity of mammography. Finding: There are regional calcifications in the right breast. These results were verbally communicated with the patient and result sheet given to the patient on 10/28/17. ASSESSMENT: Probably benign, BI-RAD 3 RECOMMENDATION: Follow-up diagnostic mammogram of the right breast in 6 months.
== END | disposition home or self-care (01) ==
LOC: RADMAMWWP 12:32
PROVIDERS: ATTEND Obstetrics & Gynecology
DX: Z12.31 Encounter for screening mammogram for malignant neoplasm of breast (principal); R92.8 Other abnormal and inconclusive findings on diagnostic imaging of breast
CPT/HCPCS: 77065; 77067

== ENCOUNTER 2017-11-06 14:45 | Emergency (ER) | payer OTHER ==
--- NOTE | 2017-11-06 16:49 | CT ---
EXAMINATION TYPE: CT brain wo con DATE OF EXAM: 11/06/2017 COMPARISON: NONE HISTORY: Headache. CT DLP: 1141 mGycm. Automated Exposure Control for Dose Reduction was Utilized. TECHNIQUE: CT scan of the head is performed without contrast. FINDINGS: Ventricles have normal size. There is no mass effect nor midline shift. There is no sign o f intracranial hemorrhage. The calvarium is intact. CONCLUSION: Negative CT scan of the brain.
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
[2017-11-06 17:24] VITALS: RESP 18
[2017-11-06 17:33] VITALS: BP 105/60; PULSE 118; TEMP 99
== END 2017-11-06 17:31 | disposition home or self-care (01) ==
LOC: EC 14:45
DX: S00.03XA Contusion of scalp, initial encounter (principal); Z87.891 Personal history of nicotine dependence; W50.0XXA Accidental hit or strike by another person, initial encounter
CPT/HCPCS: 70450; 99283

== ENCOUNTER 2018-07-25 13:40 | Emergency (ER) | payer OTHER ==
--- NOTE | 2018-07-25 14:50 | ED ---
General Adult HPI - General Chief complaint: Alcohol Stated complaint: Alcohol Detox Time Seen by Provider: 07/25/18 14:15 Source: patient, RN notes reviewed Mode of arrival: ambulatory Limitations: no limitations - History of Present Illness Initial comments: Patient is a pleasant 37-year-old female presenting to the emergency department with alcohol problems. Patient states she does have a history of previous alcohol problems however has been clean for a year. Patient started drinking again. Patient has been trying to cut back and last drink was this morning. Patient is concerned that she is going through withdrawals. Patient is trying to get into a rehab facility and requests a medical clearance. Patient states she needs to have blood alcohol level drawn. - Related Data Previous Rx's Medication Instructions Recorded LORazepam [Ativan] 1 mg PO TID PRN #8 tab 07/25/18 Allergies Allergy/AdvReac Type Severity Reaction Status Date / Time No Known Allergies Allergy Verified 11/06/17 15:43 Review of Systems ROS Statement: Those systems with pertinent positive or pertinent negative responses have been documented in the HPI. ROS Other: All systems not noted in ROS Statement are negative. Constitutional: Denies: fever Eyes: Denies: eye pain ENT: Denies: ear pain Respiratory: Denies: cough Cardiovascular: Denies: chest pain Endocrine: Denies: fatigue Gastrointestinal: Denies: abdominal pain Genitourinary: Denies: dysuria Musculoskeletal: Denies: back pain Skin: Denies: rash Neurological: Denies: weakness Past Medical History Past Medical History: Hyperlipidemia Additional Past Medical History / Comment(s): alcoholic. pt has had seizures with past detox History of Any Multi-Drug Resistant Organisms: None Reported Past Surgical History: No Surgical Hx Reported Past Anesthesia/Blood Transfusion Reactions: No Reported Reaction Additional Past Anesthesia/Blood Transfusion Reaction / Comment(s): ;[place] in a 2 story house (w/daughter) has 4-5 front steps. 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 Past Psychological History: Anxiety, Depression Smoking Status: Former smoker Past Alcohol Use History: Abuse, Daily, Heavy Past Drug Use History: None Reported - Past Family History Father Family Medical History: Coronary Artery Disease (CAD) Mother Family Medical History: No Reported History General Exam Limitations: no limitations General appearance: alert, in no apparent distress Head exam: Present: atraumatic Eye exam: Present: normal appearance, PERRL, EOMI ENT exam: Present: normal oropharynx Neck exam: Present: normal inspection Respiratory exam: Present: normal lung sounds bilaterally Cardiovascular Exam: Present: tachycardia GI/Abdominal exam: Present: soft. Absent: tenderness Extremities exam: Present: normal inspection Neurological exam: Present: alert Psychiatric exam: Present: anxious Skin exam: Present: normal color Course Vital Signs 07/25/18 07/25/18 13:41 14:53 Temperature 98.2 F Pulse Rate 135 H 127 H Respiratory 20 20 Rate Blood Pressure 112/69 111/67 O2 Sat by Pulse 98 97 Oximetry Medical Decision Making - Medical Decision Making Patient and family updated. Patient requests medically stable prescription and this is provided. Patient with land of getting into rehab on Friday and therefore will be prescribed Ativan for the next 2 days. - Lab Data Lab Results 07/25/18 Range/Units 14:45 Serum Alcohol 226 H* mg/dL Disposition Clinical Impression: Alcoholic intoxication, Alcohol abuse Disposition: HOME SELF-CARE Condition: Stable Instructions: Alcohol Withdrawal (ED), Alcohol Intoxication (ED) Additional Instructions: Please follow-up with rehab on Friday as planned. Please also follow-up with primary care physician in the next couple days for recheck. Do not drink alcohol with Ativan. Prescriptions: LORazepam [Ativan] 1 mg PO TID PRN #8 tab PRN Reason: Anxiety Is patient prescribed a controlled substance at d/c from ED?: Yes When asked, does pt state using other controlled substances?: No If prescribed controlled substance>3 days was MAPS reviewed?: Prescribed <3 Days Referrals: Marietta Gambino DO [Primary Care Provider] - 1-2 days Time of Disposition: 15:52
[2018-07-25 16:10] VITALS: BP 109/66; PULSE 119; RESP 18; TEMP 99.1
== END 2018-07-25 15:57 | disposition home or self-care (01) ==
LOC: EC 13:40
DX: F10.120 Alcohol abuse with intoxication, uncomplicated (principal); Z87.891 Personal history of nicotine dependence; Y90.7 Blood alcohol level of 200-239 mg/100 ml
CPT/HCPCS: 99284; 36415; G0480; 80320

== ENCOUNTER 2018-09-25 12:55 | Emergency (ER) | payer OTHER ==
[2018-09-25 13:03] VITALS: TEMP 97.5
--- NOTE | 2018-09-25 14:18 | ED ---
General Adult HPI - General Chief complaint: Abdominal Pain Stated complaint: female Source: patient, RN notes reviewed, old records reviewed Mode of arrival: ambulatory Limitations: no limitations - History of Present Illness Initial comments: 37-year-old female patient presents to ED for evaluation of potential bacterial vaginosis. Patient states that she thought that she had PV approximately 10 days ago, treated with [id number] remedies. Approximately 2 days ago she continued having some discharge, describes it as pale camp, describes that she small worse after Cortis. Patient denies pain with urination, abdominal pain, flank pain, hematuria, chest pain, shortness of breath, ecchymoses, any other new symptoms symptoms. She does not believe that she is . Patient states that she has mild potential concern for STI, but to be treated and tested for gonorrhea/chlamydia. Systemic: Pt denies fatigue, myalgia, fever/chills, rash. Pt denies weakness, night sweats, weight loss. Neuro: Pt denies headache, visual disturbances, syncope or pre-syncope. HEENT: Pt denies ocular discharge or irritation, otalgia, rhinorrhea, pharyngitis or notable lymphadenopathy. Cardiopulmonary: Pt denies chest pain, SOB, heart palpitations, dyspnea on exertion. Abdominal/GI: Pt denies abdominal pain, n/v/d. : Pt denies dysuria, burning w/ urination, frequency/urgency. Denies new onset urinary or bowel incontinence. MSK: Pt denies myalgia, loss of strength or function in extremities. Neuro: Pt denies new onset weakness, paresthesias. - Related Data Home Medications Medication Instructions Recorded Confirmed Gabapentin [Neurontin] 300 mg PO HS 09/25/18 09/25/18 Sertraline [Zoloft] 50 mg PO DAILY 09/25/18 09/25/18 Previous Rx's Medication Instructions Recorded metroNIDAZOLE [Flagyl] 500 mg PO BID 7 Days #14 tab 09/25/18 Allergies Allergy/AdvReac Type Severity Reaction Status Date / Time No Known Allergies Allergy Verified 09/25/18 13:30 Review of Systems ROS Statement: Those systems with pertinent positive or pertinent negative responses have been documented in the HPI. ROS Other: All systems not noted in ROS Statement are negative. Past Medical History Past Medical History: Hyperlipidemia Additional Past Medical History / Comment(s): alcoholic. pt has had seizures with past detox History of Any Multi-Drug Resistant Organisms: None Reported Past Surgical History: No Surgical Hx Reported Past Anesthesia/Blood Transfusion Reactions: No Reported Reaction Additional Past Anesthesia/Blood Transfusion Reaction / Comment(s): ;[place] in a 2 story house (w/daughter) has 4-5 front steps. 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 Past Psychological History: Anxiety, Depression Smoking Status: Former smoker Past Alcohol Use History: None Reported, Abuse, Daily, Heavy Past Drug Use History: None Reported - Past Family History Father Family Medical History: Coronary Artery Disease (CAD) Mother Family Medical History: No Reported History General Exam - General Exam Comments Initial Comments: Constitutional: NAD, AOX3, Pt has pleasant affect. HEENT: NC/AT, trachea midline, neck supple, no lymphadenopathy. Posterior pharynx non erythematous, without exudates. External ears appear normal, without discharge. Mucous membranes moist. Eyes PERRLA, EOM intact. There is no scleral icterus. No pallor noted. Cardiopulmonary: RRR, no murmurs, rubs or gallops, no JVD noted. Lungs CTAB in anterior and posterior brown. No peripheral edema. Abdominal exam: Abdomen soft and non-distended. Abdomen non-tender to palpation in all 4 quadrants. Bowel sounds active in LLQ. No hepatosplenomegaly. No ecchymosis Neuro: CN II-XII grossly intact. No nuchal rigidity. MSK: No posterior calf tenderness bilaterally, homans sign negative bilaterally. Posterior tibialis and radial pulse +2 bilaterally. : External exam did not reveal any lesions, abrasions, erythema, any other abnormal findings. Pelvic exam displayed some pale Camp discharge discharge, no other abnormal findings. Cervix pink, no erosions, lesions, blood. No cervical motion tenderness on bimanual exam. Chaperoned by SAUNDRA Sorensen. Limitations: no limitations Course Vital Signs 09/25/18 13:00 Temperature 97.5 F L Pulse Rate 75 Respiratory 18 Rate Blood Pressure 109/67 O2 Sat by Pulse 99 Oximetry Medical Decision Making - Medical Decision Making 37-year-old female patient presents for evaluation of possible bacterial vaginosis, treatment/evaluation for possible STI. Pelvic exam revealed camp discharge no other abnormal findings. Physical exam is otherwise benign. UA displayed possible UTI, will be cultured, we'll contact patient with results. Patient also contacted for results of gonorrhea/chlamydia PCR. HCG was negative. Patient to be treated for gonorrhea/chlamydia and ED, we'll discharged with prescription of Flagyl for BV. Patient to follow up with PCP in 1-2 days. Patient to return to ED if any signs or symptoms develop including abdominal pain, nausea, diarrhea, fever or chills, flank pain, any other new symptoms. Case discussed with Dr. Garcia. - Lab Data Lab Results 09/25/18 09/25/18 Range/Units 14:00 14:00 Urine Color Yellow Urine Appearance Cloudy H (Clear) Urine pH 6.5 (5.0-8.0) Ur Specific [place] 1.022 (1.001-1.035) Urine Protein Trace H (Negative) Urine Glucose (UA) Negative (Negative) Urine Ketones Negative (Negative) Urine Blood Negative (Negative) Urine Nitrite Negative (Negative) Urine Bilirubin Negative (Negative) Urine Urobilinogen 2.0 (<2.0) mg/dL Ur Leukocyte Esterase Large H (Negative) Urine RBC 3 (0-5) /hpf Urine WBC 7 H (0-5) /hpf Ur Squamous Epith Cells 12 H (0-4) /hpf Amorphous Sediment Rare H (None) /hpf Hyaline Casts 5 H (0-2) /lpf Urine Mucus Moderate H (None) /hpf Urine HCG, Qual Not Detected (Not Detectd) Disposition Clinical Impression: Bacterial vaginosis Disposition: HOME SELF-CARE Condition: Good Instructions: Bacterial Vaginosis (ED) Additional Instructions: Patient to adhere to previously discussed treatment plan and will take medication(s) as directed. Patient to follow up with PCP in 1-2 days. Patient to return to ED if symptoms do not improve. Prescriptions: metroNIDAZOLE [Flagyl] 500 mg PO BID 7 Days #14 tab Is patient prescribed a controlled substance at d/c from ED?: No Referrals: Marietta Gambino DO [Primary Care Provider] - 1-2 days Time of Disposition: 15:04
[2018-09-25 14:27] LABS: Amorphous Sediment,Urine Rare /hpf; Appearance,Urine Cloudy (Clear); Bilirubin,Urine Negative (Negative); Blood,Urine Negative (Negative); Color,Urine Yellow; Glucose,Urine (UA) Negative (Negative); Hyaline Casts,Urine 5 /lpf (0-2); Ketones,Urine Negative (Negative); Leukocyte Esterase,Urine Large (Negative); Mucus,Urine Moderate /hpf; Nitrite,Urine Negative (Negative); PH, Urine 6.5 (5.0-8.0); Protein,Urine Trace (Negative); RBC,Urine 3 /hpf (0-5); Specific Gravity,Urine 1.022 (1.001-1.035); Squamous Epithelial Cell,Urine 12 /hpf (0-4)
[2018-09-25] MEDS ORDERED: AZITHROMYCIN 500 MG TAB PO STA (14:59)
[2018-09-25] MEDS ORDERED: cefTRIAXone 250 MG VIAL IM STA (14:59)
[2018-09-25 15:38] VITALS: BP 126/87; PULSE 86; RESP 16
[2018-09-26 16:08] LABS: C. trachomatis,PCR Negative (Neg,Equiv); Chlamydia trachomatis Source Urine
[2018-09-26 16:17] LABS: N. gonorrhoeae,PCR Negative (Neg,Equiv); Neisseria Source Urine
== END 2018-09-25 15:20 | disposition home or self-care (01) ==
LOC: EC 12:55
DX: N76.0 Acute vaginitis (principal); B96.89 Other specified bacterial agents as the cause of diseases classified elsewhere; F41.9 Anxiety disorder, unspecified; F32.9 Major depressive disorder, single episode, unspecified; Z79.899 Other long term (current) drug therapy; Z87.891 Personal history of nicotine dependence
CPT/HCPCS: 81001; 81025; 87491; 87591; 87086; 99284; 96372; J0696

== ENCOUNTER 2023-02-06 16:10 | Emergency (ER) | payer OTHER ==
--- NOTE | 2023-02-06 18:32 | ED ---
General Adult HPI - General Chief complaint: Recheck/Abnormal Lab/Rx Stated complaint: Insomnia,Headache Time Seen by Provider: 02/06/23 18:04 Source: patient Mode of arrival: ambulatory Limitations: no limitations - History of Present Illness Initial comments: Patient is a 42-year-old female presents to the emergency department for medication refill. Patient just got out of [facility] she is waiting for her insurance to become active therefore she does not have a primary care provider for medication refill. Patient has been out of her Effexor for the past week. She has tried to go to urgent cares who will not prescribe her this medication. Patient reporting insomnia and mild headache from stopping Cymbalta abruptly. No recent head trauma or falls. No fever, chills, cold-like symptoms, neck pain. No focal deficit or weakness. No nausea or vomiting. No chest pain or shortness of breath. Patient is also almost out of Lipitor. - Related Data Home Medications Medication Instructions Recorded Confirmed Gabapentin [Neurontin] 300 mg PO HS 09/25/18 09/25/18 Sertraline [Zoloft] 50 mg PO DAILY 09/25/18 09/25/18 Previous Rx's Medication Instructions Recorded metroNIDAZOLE [Flagyl] 500 mg PO BID 7 Days #14 tab 09/25/18 Atorvastatin [Lipitor] 40 mg PO DAILY #14 tablet 02/06/23 Venlafaxine HCl [Effexor] 75 mg PO DAILY #30 tab 02/06/23 Allergies Allergy/AdvReac Type Severity Reaction Status Date / Time No Known Allergies Allergy Verified 02/06/23 16:16 Review of Systems ROS Statement: Those systems with pertinent positive or pertinent negative responses have been documented in the HPI. ROS Other: All systems not noted in ROS Statement are negative. Past Medical History Past Medical History: Hyperlipidemia Additional Past Medical History / Comment(s): alcoholic. pt has had seizures with past detox History of Any Multi-Drug Resistant Organisms: None Reported Past Surgical History: No Surgical Hx Reported Past Anesthesia/Blood Transfusion Reactions: No Reported Reaction Additional Past Anesthesia/Blood Transfusion Reaction / Comment(s): ;[place] in a 2 story house (w/daughter) has 4-5 front steps. 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 Past Psychological History: Anxiety, Depression Past Alcohol Use History: None Reported, Abuse, Daily, Heavy Past Drug Use History: None Reported - Past Family History Father Family Medical History: Coronary Artery Disease (CAD) Mother Family Medical History: No Reported History General Exam Limitations: no limitations General appearance: alert, in no apparent distress Head exam: Present: atraumatic, normocephalic, normal inspection Respiratory exam: Present: normal lung sounds bilaterally. Absent: respiratory distress, wheezes, rales, rhonchi, stridor Cardiovascular Exam: Present: regular rate, normal rhythm, normal heart sounds. Absent: systolic murmur, diastolic murmur, rubs, gallop, clicks GI/Abdominal exam: Present: soft, normal bowel sounds. Absent: distended, tenderness, guarding, rebound, rigid Neurological exam: Present: alert, oriented X3, CN II-XII intact Psychiatric exam: Present: normal affect, normal mood Skin exam: Present: warm, dry, intact, normal color. Absent: rash Course Vital Signs 02/06/23 02/06/23 16:12 18:40 Temperature 98.0 F 98.2 F Pulse Rate 99 82 Respiratory 20 16 Rate Blood Pressure 112/72 119/78 O2 Sat by Pulse 99 95 Oximetry Medical Decision Making - Medical Decision Making Was pt. sent in by a medical professional or institution (, PA, PHY THERAPIST, urgent care, hospital, or halfway...) When possible be specific @ -No Did you speak to anyone other than the patient for history (EMS, parent, family, police, friend...)? What history was obtained from this source @ -No Did you review nursing and triage notes (agree or disagree)? Why? @ -I reviewed and agree with nursing and triage notes Were old charts reviewed (outside hosp., previous admission, EMS record, old EKG, old radiological studies, urgent care reports/EKG's, halfway records)? Report findings @ -No old charts were reviewed Differential Diagnosis (chest pain, altered mental status, abdominal pain women, abdominal pain men, vaginal bleeding, weakness, fever, dyspnea, syncope, headache, dizziness, GI bleed, back pain, seizure, CVA, palpatations, mental health)? @ -Differential Headache: Migraine, tension, cluster, carbon monoxide, central venous thrombosis, pension karma temporal arteritis, acute closure glaucoma, intercranial hemorrhage, mastoiditis, sinusitis, head injury, side effect of medicatio abruption. this is not meant to be an all-inclusive list. EKG interpreted by me (3pts min.). @ -As above X-rays interpreted by me (1pt min.). @ -None done CT interpreted by me (1pt min.). @ -None done U/S interpreted by me (1pt. min.). @ -None done What testing was considered but not performed or refused? (CT, X-rays, U/S, labs)? Why? @ -None What meds were considered but not given or refused? Why? @ -None Did you discuss the management of the patient with other professionals (professionals i.e. DrBarbara, PA, PHY THERAPIST, lab, RT, psych nurse, social insurance adviser, marine superintendent, teacher, debt recovery officer, correctional casework specialist)? Give summary @ -No Was smoking cessation discussed for >3mins.? @ -No Was critical care preformed (if so, how long)? @ -No Were there social determinants of health that impacted care today? How? (Homelessness, low income, unemployed, alcoholism, drug addiction, transportation, low edu. Level, literacy, decrease access to med. care, [facility], rehab)? @ -No Was there de-escalation of care discussed even if they declined (Discuss DNR or withdrawal of care, Hospice)? DNR status @ -No What co-morbidities impacted this encounter? (DM, HTN, Smoking, COPD, CAD, Cancer, CVA, ARF, Chemo, Hep., AIDS, mental health diagnosis, sleep apnea, morbid obesity)? @ -None Was patient admitted / discharged? Hospital course, mention meds given and route, prescriptions, significant lab abnormalities, going to OR and other pertinent info. @ -Patient presenting for medication refill. Patient given prescription for Effexor and Lipitor. She will follow-up with her primary care provider as planned. Undiagnosed new problem with uncertain prognosis? @ -No Drug Therapy requiring intensive monitoring for toxicity (Heparin, Nitro, Insulin, Cardizem)? @ -No Were any procedures done? @ -No Diagnosis/symptom? @ -Encounter for medication refill Acute, or Chronic, or Acute on Chronic? @ -Acute Uncomplicated (without systemic symptoms) or Complicated (systemic symptoms)? @ -Uncomplicated Side effects of treatment? @ -No Exacerbation, Progression, or Severe Exacerbation? @ -No Poses a threat to life or bodily function? How? (Chest pain, [place], [place], pneumonia, PE, COPD, DKA, ARF, appy, cholecystitis, CVA, Diverticulitis, Homicidal, Suicidal, threat to staff... and all critical care pts) @ -No Dr. Garcia is my attending Disposition Clinical Impression: Encounter for medication refill Disposition: HOME SELF-CARE Condition: Good Instructions (If sedation given, give patient instructions): Hyperlipidemia (DC) Additional Instructions: Take medication as directed. Follow-up with primary care provider as soon as possible as planned. Return to the emergency department if you experience new, concerning, or worsening symptoms. Prescriptions: Venlafaxine HCl [Effexor] 75 mg PO DAILY #30 tab Atorvastatin [Lipitor] 40 mg PO DAILY #14 tablet Is patient prescribed a controlled substance at d/c from ED?: No Referrals: None,Stated [Primary Care Provider] - 1-2 days
[2023-02-06 18:43] VITALS: BP 119/78; PULSE 82; RESP 16; TEMP 98.2
== END 2023-02-06 18:35 | disposition home or self-care (01) ==
LOC: EC 16:10
DX: Z76.0 Encounter for issue of repeat prescription (principal); F41.9 Anxiety disorder, unspecified; F32.A Depression, unspecified; E78.5 Hyperlipidemia, unspecified; Z79.899 Other long term (current) drug therapy
CPT/HCPCS: 99283

== ENCOUNTER 2023-06-25 14:28 | Emergency (ER) | payer OTHER ==
[2023-06-25 15:25] VITALS: TEMP 98
--- NOTE | 2023-06-25 15:27 | ED ---
Psych HPI - General Source: patient, RN notes reviewed Mode of arrival: wheelchair Limitations: no limitations <Jair Wilde - Last Filed: 06/25/23 15:26> - History of Present Illness MD Complaint: feels depressed -: unknown Associated Psychiatric Symptoms: depression, racing thoughts History of same: Yes Quality: constant Improves With: none Worsens With: none, alcohol Context: recent alcohol abuse Associated Symptoms: denies other symptoms Treatments Prior to Arrival: placed on mental health hold <Leo Garcia - Last Filed: 06/26/23 05:48> - General Chief Complaint: Psychiatric Symptoms Stated Complaint: poss Seizure Time Seen by Provider: 06/25/23 15:26 - History of Present Illness Initial Comments: 42-year-old female presents emergency from for psychiatric evaluation. Patient states she is depressed, history of anxiety. Patient states she is suicidal she states that she states that she took some random pills a few days ago but also drinks alcohol which she does not normally drink. Patient denies any homicidal ideation. (Jair Wilde) This is a 42-year-old female for psychiatric evaluation. Patient doesn't smoke or use today but no other significant issues. Patient is severely depressed with anxiety (Leo Garcia) - Related Data Home Medications Medication Instructions Recorded Confirmed Gabapentin [Neurontin] 300 mg PO HS 09/25/18 09/25/18 Sertraline [Zoloft] 50 mg PO DAILY 09/25/18 09/25/18 Previous Rx's Medication Instructions Recorded metroNIDAZOLE [Flagyl] 500 mg PO BID 7 Days #14 tab 09/25/18 Atorvastatin [Lipitor] 40 mg PO DAILY #14 tablet 02/06/23 Venlafaxine HCl [Effexor] 75 mg PO DAILY #30 tab 02/06/23 Allergies Allergy/AdvReac Type Severity Reaction Status Date / Time No Known Allergies Allergy Verified 06/25/23 15:25 Review of Systems ROS Other: All systems not noted in ROS Statement are negative. <Jair Wilde - Last Filed: 06/25/23 15:26> ROS Other: All systems not noted in ROS Statement are negative. <Leo Garcia - Last Filed: 06/26/23 05:48> ROS Statement: Those systems with pertinent positive or pertinent negative responses have been documented in the HPI. Past Medical History Past Medical History: Hyperlipidemia Additional Past Medical History / Comment(s): alcoholic. pt has had seizures with past detox History of Any Multi-Drug Resistant Organisms: None Reported Past Surgical History: No Surgical Hx Reported Past Anesthesia/Blood Transfusion Reactions: No Reported Reaction Additional Past Anesthesia/Blood Transfusion Reaction / Comment(s): ;k[place]by in a 2 story house (w/daughter) has 4-5 front steps. 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 Past Psychological History: Anxiety, Depression Smoking Status: Current every day smoker Past Alcohol Use History: Abuse, Daily, Heavy Past Drug Use History: Unable to Obtain - Past Family History Father Family Medical History: Coronary Artery Disease (CAD) Mother Family Medical History: No Reported History <Jair Wilde - Last Filed: 06/25/23 15:26> General Exam Limitations: no limitations <Jair Wilde - Last Filed: 06/25/23 15:26> General appearance: alert, in no apparent distress Head exam: Present: atraumatic, normocephalic, normal inspection Eye exam: Present: normal appearance, PERRL, EOMI. Absent: scleral icterus, conjunctival injection, periorbital swelling ENT exam: Present: normal exam, mucous membranes moist Neck exam: Present: normal inspection. Absent: tenderness, meningismus, lymphadenopathy Respiratory exam: Present: normal lung sounds bilaterally. Absent: respiratory distress, wheezes, rales, rhonchi, stridor Cardiovascular Exam: Present: regular rate, normal rhythm, normal heart sounds. Absent: systolic murmur, diastolic murmur, rubs, gallop, clicks GI/Abdominal exam: Present: soft, normal bowel sounds. Absent: distended, tenderness, guarding, rebound, rigid Extremities exam: Present: normal inspection, full ROM, normal capillary refill. Absent: tenderness, pedal edema, joint swelling, calf tenderness Back exam: Present: normal inspection Neurological exam: Present: alert, oriented X3, CN II-XII intact Psychiatric exam: Present: normal affect, normal mood Skin exam: Present: warm, dry, intact, normal color. Absent: rash <Leo Garcia - Last Filed: 06/26/23 05:48> - General Exam Comments Initial Comments: Visual Physical Exam Vital signs reviewed General: Well-appearing, nontoxic, no acute distress. Head: Normocephalic, atraumatic Eyes: PERRLA, EOMI ENT: Airway patent Chest: Nonlabored breathing Skin: No visual rash, normal skin tone Neuro: Alert and oriented 3 Musculoskeletal: No gross abnormalities (Jair Wilde) Course <Leo Garcia - Last Filed: 06/26/23 05:48> Vital Signs 06/25/23 06/25/23 06/26/23 15:21 15:49 04:55 Temperature 98.0 F Pulse Rate 106 H 80 63 Respiratory 20 20 16 Rate Blood Pressure 122/80 110/60 114/75 O2 Sat by Pulse 99 98 100 Oximetry - Reevaluation(s) Reevaluation #1: 06/26/23 Medical records reviewed (Leo Garcia) Reevaluation #2: 06/26/23 Medical clear for psychiatric evaluation (Leo Garcia) Medical Decision Making <Jair Wilde - Last Filed: 06/25/23 15:26> <Leo Garcia - Last Filed: 06/26/23 05:48> - Medical Decision Making I performed the quick note portion of this chart signed Jair Wilde PA-C (Jair Wilde) 42 female seen and evaluated by psychiatry, patient can be discharged home after psychiatric evaluation and treatment (Leo Garcia) - Lab Data Lab Results 06/25/23 Range/Units 15:26 Urine Opiates Screen Not Detected (NotDetected) Ur Oxycodone Screen Not Detected (NotDetected) Urine Methadone Screen Not Detected (NotDetected) Ur Propoxyphene Screen Not Detected (NotDetected) Ur Barbiturates Screen Not Detected (NotDetected) U Tricyclic Antidepress Not Detected (NotDetected) Ur Phencyclidine Scrn Not Detected (NotDetected) Ur Amphetamines Screen Not Detected (NotDetected) U Methamphetamines Scrn Not Detected (NotDetected) U Benzodiazepines Scrn Not Detected (NotDetected) Urine Cocaine Screen Not Detected (NotDetected) U Marijuana (THC) Screen Not Detected (NotDetected) Disposition <Jair Wilde - Last Filed: 06/25/23 15:26> Is patient prescribed a controlled substance at d/c from ED?: No <Leo Garcia - Last Filed: 06/26/23 05:48> Clinical Impression: Alcoholic intoxication, Depression Disposition: HOME SELF-CARE Condition: Fair Instructions (If sedation given, give patient instructions): Depression (ED) Referrals: None,Stated [Primary Care Provider] - 1-2 days
[2023-06-25 16:41] LABS: Amphetamine Screen,Urine Not Detected (NotDetected); Barbiturate Screen,Urine Not Detected (NotDetected); Benzodiazepines Screen,Urine Not Detected (NotDetected); Cocaine Screen,Urine Not Detected (NotDetected); Methadone Screen, Urine Not Detected (NotDetected); Opiate Screen,Urine Not Detected (NotDetected); Oxycodone Screen, Urine Not Detected (NotDetected); Phencyclidine Screen,Urine Not Detected (NotDetected); Tricyclic Antidepressant,Urine Not Detected (NotDetected); Urn Cannabinoid Scrn Not Detected (NotDetected)
[2023-06-26] MEDS ORDERED: LORazepam 2 MG/ML INJ IV STA (00:20)
[2023-06-26] MEDS ORDERED: SODIUM CHLORIDE 0.9% 1,000 ML IV ONE (00:20)
[2023-06-26] MEDS ORDERED: LORazepam 2 MG/ML INJ IV PRN ×3 (00:21)
[2023-06-26] MEDS ORDERED: LORazepam 1 MG TAB PO PRN (00:21)
[2023-06-26 04:59] VITALS: BP 114/75; PULSE 63; RESP 16
[2023-06-27] MEDS ORDERED: THIAMINE 100 MG TAB PO SCH (09:00)
== END 2023-06-26 05:54 | disposition home or self-care (01) ==
LOC: EC 14:28
DX: F10.129 Alcohol abuse with intoxication, unspecified (principal); F32.A Depression, unspecified; F41.9 Anxiety disorder, unspecified; F17.200 Nicotine dependence, unspecified, uncomplicated; Z79.899 Other long term (current) drug therapy
CPT/HCPCS: 82075; 80306; 99285; 96374; 96361; J2060

== ENCOUNTER 2023-06-28 02:54 | Emergency (ER) | payer OTHER ==
[2023-06-28] MEDS ORDERED: ONDANSETRON 4 MG/2 ML VIAL IVP STA (03:52)
[2023-06-28] MEDS ORDERED: SODIUM CHLORIDE 0.9% 2,000 ML IV STA (03:52)
[2023-06-28] MEDS ORDERED: LORazepam 2 MG/ML INJ IV STA ×2 (03:53→05:25)
[2023-06-28 04:28] LABS: Basophils % (A) 1 %; Eosinophils # (A) 0.1 k/uL (0-0.7); Eosinophils % (A) 2 %; HCT 39.9 % (34.0-46.0); HGB 13.1 gm/dL (11.4-16.0); Lymphocytes % (A) 17 %; MCHC 32.8 g/dL (31.0-37.0); MCV 97.5 fL (80.0-100.0); Mean Platelet Volume 7.1; Monocytes # (A) 0.5 k/uL (0-1.0); Monocytes % (A) 9 %; Neutrophils # (A) 4.2 k/uL (1.3-7.7); Neutrophils % (A) 69 %; Platelet Count 525 k/uL (150-450); RBC 4.09 m/uL (3.80-5.40)
[2023-06-28 04:36] LABS: ALT 22 U/L (4-34); African American GFR (CKD) >90 (>60 ml/min/1.73 sqM); Albumin 3.9 g/dL (3.5-5.0); Alcohol 52 mg/dL; Anion Gap 9 mmol/L; Blood Urea Nitrogen 15 mg/dL (7-17); Carbon Dioxide 24 mmol/L (22-30); Chloride 103 mmol/L (98-107); Glucose 88 mg/dL (74-99); Lipase 167 U/L (23-300); Non-African American GFR(CKD) >90 (>60 ml/min/1.73 sqM); Sodium 136 mmol/L (137-145); Total Bilirubin 0.7 mg/dL (0.2-1.3); Total Protein 7.1 g/dL (6.3-8.2)
[2023-06-28 04:41] LABS: AST 36 U/L (14-36); Alkaline Phosphatase 69 U/L (38-126); Potassium 4.6 mmol/L (3.5-5.1)
[2023-06-28 05:23] VITALS: RESP 16
--- NOTE | 2023-06-28 05:45 | ED ---
General Adult HPI - General Chief complaint: Nausea/Vomiting/Diarrhea Stated complaint: Nausea, Tremors, Hot flashes Time Seen by Provider: 06/28/23 03:21 Source: patient Mode of arrival: ambulatory Limitations: no limitations - History of Present Illness Initial comments: 42-year-old female presents to the emergency room reporting withdrawal symptoms. States that she has been drinking daily for the past couple of days. She did last drink around 10 PM this evening. She wants to stop drinking but has developed symptoms of breathlessness and nausea. She has had withdrawal seizures previously. She denies any seizures currently. No vomiting. Admits to a mild headache. No visual changes. No abdominal pain. Denies any other substance abuse. Denies concern for . No other alleviating, precipitating or modifying factors - Related Data Home Medications Medication Instructions Recorded Confirmed Gabapentin [Neurontin] 300 mg PO HS 09/25/18 09/25/18 Sertraline [Zoloft] 50 mg PO DAILY 09/25/18 09/25/18 Previous Rx's Medication Instructions Recorded metroNIDAZOLE [Flagyl] 500 mg PO BID 7 Days #14 tab 09/25/18 Atorvastatin [Lipitor] 40 mg PO DAILY #14 tablet 02/06/23 Venlafaxine HCl [Effexor] 75 mg PO DAILY #30 tab 02/06/23 chlordiazePOXIDE HCl [Librium] 25 mg PO TID 4 Days #22 capsule 06/28/23 Allergies Allergy/AdvReac Type Severity Reaction Status Date / Time No Known Allergies Allergy Verified 06/28/23 03:03 Review of Systems ROS Statement: Those systems with pertinent positive or pertinent negative responses have been documented in the HPI. ROS Other: All systems not noted in ROS Statement are negative. Past Medical History Past Medical History: Hyperlipidemia Additional Past Medical History / Comment(s): alcoholic. pt has had seizures with past detox History of Any Multi-Drug Resistant Organisms: None Reported Past Surgical History: No Surgical Hx Reported Past Anesthesia/Blood Transfusion Reactions: No Reported Reaction Additional Past Anesthesia/Blood Transfusion Reaction / Comment(s): ;[place] in a 2 story house (w/daughter) has 4-5 front steps. 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 Past Psychological History: Anxiety, Depression Smoking Status: Current every day smoker Past Alcohol Use History: Abuse, Daily, Heavy Past Drug Use History: None Reported - Past Family History Father Family Medical History: Coronary Artery Disease (CAD) Mother Family Medical History: No Reported History General Exam Limitations: no limitations General appearance: alert, other (mild tremors) Head exam: Present: atraumatic, normocephalic, normal inspection Eye exam: Present: normal appearance, PERRL, EOMI. Absent: scleral icterus, conjunctival injection, periorbital swelling ENT exam: Present: normal exam, mucous membranes moist Neck exam: Present: normal inspection. Absent: tenderness, meningismus, lymphadenopathy Respiratory exam: Present: normal lung sounds bilaterally. Absent: respiratory distress, wheezes, rales, rhonchi, stridor Cardiovascular Exam: Present: regular rate, normal rhythm, normal heart sounds. Absent: systolic murmur, diastolic murmur, rubs, gallop, clicks GI/Abdominal exam: Present: soft, normal bowel sounds. Absent: distended, tenderness, guarding, rebound, rigid Extremities exam: Present: normal inspection, full ROM, normal capillary refill. Absent: tenderness, pedal edema, joint swelling, calf tenderness Back exam: Present: normal inspection Neurological exam: Present: alert, oriented X3, CN II-XII intact Psychiatric exam: Present: normal affect, normal mood Skin exam: Present: warm, dry, intact, normal color. Absent: rash Course Vital Signs 06/28/23 06/28/23 06/28/23 03:00 05:00 06:21 Temperature 98 F 98.7 F Pulse Rate 121 H 80 99 Respiratory 18 16 16 Rate Blood Pressure 112/80 129/50 119/92 O2 Sat by Pulse 96 95 97 Oximetry Medical Decision Making - Medical Decision Making Was pt. sent in by a medical professional or institution (, PA, HEALTH AND WELLNESS ADVISOR, urgent care, hospital, or [facility]...) When possible be specific @ -No Did you speak to anyone other than the patient for history (EMS, parent, family, police, friend...)? What history was obtained from this source @ -No Did you review nursing and triage notes (agree or disagree)? Why? @ -I reviewed and agree with nursing and triage notes Were old charts reviewed (outside hosp., previous admission, EMS record, old EKG, old radiological studies, urgent care reports/EKG's, [facility] records)? Report findings @ -No old charts were reviewed Differential Diagnosis (chest pain, altered mental status, abdominal pain women, abdominal pain men, vaginal bleeding, weakness, fever, dyspnea, syncope, headache, dizziness, GI bleed, back pain, seizure, CVA, palpatations, mental health, musculoskeletal)? @ -Alcohol intoxication, alcohol withdrawal, anxiety, depression EKG interpreted by me (3pts min.). @ -Not completed X-rays interpreted by me (1pt min.). @ -None done CT interpreted by me (1pt min.). @ -None done U/S interpreted by me (1pt. min.). @ -None done What testing was considered but not performed or refused? (CT, X-rays, U/S, labs)? Why? @ -None What meds were considered but not given or refused? Why? @ -None Did you discuss the management of the patient with other professionals (isabella lopez i.e. , PA, HEALTH AND WELLNESS ADVISOR, lab, RT, psych nurse, oncology social work, consulting psychiatrist, teacher, procurement officer, manager case)? Give summary @ -No Was smoking cessation discussed for >3mins.? @ -No Was critical care preformed (if so, how long)? @ -No Were there social determinants of health that impacted care today? How? (Homelessness, low income, unemployed, alcoholism, drug addiction, transportation, low edu. Level, literacy, decrease access to med. care, long-term, rehab)? @ -Alcohol abuse Was there de-escalation of care discussed even if they declined (Discuss DNR or withdrawal of care, Hospice)? DNR status @ -No What co-morbidities impacted this encounter? (DM, HTN, Smoking, COPD, CAD, Cancer, CVA, ARF, Chemo, Hep., AIDS, mental health diagnosis, sleep apnea, morbid obesity)? @ -None Was patient admitted / discharged? Hospital course, mention meds given and route, prescriptions, significant lab abnormalities, going to OR and other pertinent info. @ -Upon arrival patient was placed into room 2. A thorough history and physical exam was performed. IV is established. Patient was given nausea medications and placed on CIWA protocol. Laboratory studies are conducted.Patient is still acutely intoxicated however within the legal limit at 52. Patient is reevaluated after Ativan and states that she does feel improved. I did discuss the treatment plan. Patient does feel comfortable going home on Librium. Patient is to take the medications as directed. Call to find a rehab facility. Return to the emergency room for any new or worsening symptoms. Patient was agreeable to this plan she was discharged in stable condition Undiagnosed new problem with uncertain prognosis? @ -No Drug Therapy requiring intensive monitoring for toxicity (Heparin, Nitro, Insulin, Cardizem)? @ -No Were any procedures done? @ -No Diagnosis/symptom? @ -Acute withdrawal symptoms, acute alcohol intoxication Acute, or Chronic, or Acute on Chronic? @ -Acute Uncomplicated (without systemic symptoms) or Complicated (systemic symptoms)? @ -complicated Side effects of treatment? @ -No Exacerbation, Progression, or Severe Exacerbation? @ -No Poses a threat to life or bodily function? How? (Chest pain, USA, LA, pneumonia, PE, COPD, DKA, ARF, appy, cholecystitis, CVA, Diverticulitis, Homicidal, Suicidal, threat to staff... and all critical care pts) @ -No - Lab Data Result diagrams: 06/28/23 04:19 06/28/23 04:19 Lab Results 06/28/23 06/28/23 Range/Units 04:19 04:19 WBC 6.0 (3.8-10.6) k/uL RBC 4.09 (3.80-5.40) m/uL Hgb 13.1 (11.4-16.0) gm/dL Hct 39.9 (34.0-46.0) % MCV 97.5 (80.0-100.0) fL MCH 32.0 (25.0-35.0) pg MCHC 32.8 (31.0-37.0) g/dL RDW 13.0 (11.5-15.5) % Plt Count 525 H (150-450) k/uL MPV 7.1 Neutrophils % 69 % Lymphocytes % 17 % Monocytes % 9 % Eosinophils % 2 % Basophils % 1 % Neutrophils # 4.2 (1.3-7.7) k/uL Lymphocytes # 1.0 (1.0-4.8) k/uL Monocytes # 0.5 (0-1.0) k/uL Eosinophils # 0.1 (0-0.7) k/uL Basophils # 0.0 (0-0.2) k/uL Sodium 136 L (137-145) mmol/L Potassium 4.6 (3.5-5.1) mmol/L Chloride 103 (98-107) mmol/L Carbon Dioxide 24 (22-30) mmol/L Anion Gap 9 mmol/L BUN 15 (7-17) mg/dL Creatinine 0.78 (0.52-1.04) mg/dL Est GFR (CKD-EPI)AfAm >90 (>60 ml/min/1.73 sqM) Est GFR (CKD-EPI)NonAf >90 (>60 ml/min/1.73 sqM) Glucose 88 (74-99) mg/dL Calcium 9.0 (8.4-10.2) mg/dL Total Bilirubin 0.7 (0.2-1.3) mg/dL AST 36 (14-36) U/L ALT 22 (4-34) U/L Alkaline Phosphatase 69 (38-126) U/L Total Protein 7.1 (6.3-8.2) g/dL Albumin 3.9 (3.5-5.0) g/dL Lipase 167 (23-300) U/L Serum Alcohol 52 mg/dL Disposition Clinical Impression: Alcohol withdrawal syndrome, Nausea & vomiting Disposition: HOME SELF-CARE Condition: Stable Instructions (If sedation given, give patient instructions): Alcohol Withdrawal (ED) Additional Instructions: Please take the medications as directed. Follow up with your doctor and return for any new or worsening symptoms Prescriptions: chlordiazePOXIDE HCl [Librium] 25 mg PO TID 4 Days #22 capsule Is patient prescribed a controlled substance at d/c from ED?: No Referrals: None,Stated [Primary Care Provider] - 1-2 days Time of Disposition: 05:45
[2023-06-28 06:22] VITALS: BP 119/92; PULSE 99; TEMP 98.7
== END 2023-06-28 06:22 | disposition home or self-care (01) ==
LOC: EC 02:54
DX: F10.939 Alcohol use, unspecified with withdrawal, unspecified (principal); R11.2 Nausea with vomiting, unspecified; F17.200 Nicotine dependence, unspecified, uncomplicated; Z86.59 Personal history of other mental and behavioral disorders; Y90.2 Blood alcohol level of 40-59 mg/100 ml
CPT/HCPCS: 36415; 80053; 83690; 85025; 80320; 99284; 96374; 96375; 96376; 96361 ×2; J2060; J2405

== ENCOUNTER 2023-10-22 23:51 | Emergency (ER) | payer OTHER ==
--- NOTE | 2023-10-23 00:08 | ED ---
Alcohol HPI - General Source: patient, RN notes reviewed <Madison Martin - Last Filed: 10/23/23 00:07> - General Source: patient, RN notes reviewed Limitations: no limitations <Elie Pena - Last Filed: 10/23/23 13:43> - General Stated Complaint: Detoxing from alcohol Time Seen by Provider: 10/23/23 00:07 - History of Present Illness Initial Comments: Patient is a 38-year-old female presented ER with chief complaint of alcohol detox. Patient states her last drink was last night. Patient does have a history of seizures. Patient denies any SI/HI. Patient denies any other complaints. (Madison Martin) Patient is a pleasant 42-year-old female presenting to the emergency department with concerns for alcohol detox. Patient last drink yesterday. Patient has nausea. Patient feels shaky. Patient has problems relaxing. Patient has been drinking a lot since the holidays and has not eaten much food at all. (Elie Pena) - Related Data Home Medications Medication Instructions Recorded Confirmed No Known Home Medications 10/23/23 10/23/23 Allergies Allergy/AdvReac Type Severity Reaction Status Date / Time No Known Allergies Allergy Verified 10/23/23 11:43 Review of Systems ROS Other: All systems not noted in ROS Statement are negative. <Madison Martin - Last Filed: 10/23/23 00:07> ROS Other: All systems not noted in ROS Statement are negative. Constitutional: Denies: fever Eyes: Denies: eye pain ENT: Denies: ear pain Respiratory: Denies: cough, dyspnea Cardiovascular: Reports: palpitations Endocrine: Reports: fatigue Gastrointestinal: Reports: nausea Musculoskeletal: Denies: back pain <Elie Pena - Last Filed: 10/23/23 13:43> ROS Statement: Those systems with pertinent positive or pertinent negative responses have been documented in the HPI. Past Medical History Past Medical History: Hyperlipidemia Additional Past Medical History / Comment(s): alcoholic. pt has had seizures with past detox History of Any Multi-Drug Resistant Organisms: None Reported Past Surgical History: No Surgical Hx Reported Past Anesthesia/Blood Transfusion Reactions: No Reported Reaction Additional Past Anesthesia/Blood Transfusion Reaction / Comment(s): ;[place]by in a 2 story house (w/daughter) has 4-5 front steps. 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 Past Psychological History: Anxiety, Depression Smoking Status: Current every day smoker Past Alcohol Use History: Abuse, Daily, Heavy Past Drug Use History: None Reported - Past Family History Father Family Medical History: Coronary Artery Disease (CAD) Mother Family Medical History: No Reported History <Madison Martin - Last Filed: 10/23/23 00:07> General Exam <Madison Martin - Last Filed: 10/23/23 00:07> Limitations: no limitations General appearance: alert, in no apparent distress, other (Mild resting tremor) Head exam: Present: normocephalic Eye exam: Present: normal appearance Neck exam: Present: normal inspection Respiratory exam: Present: normal lung sounds bilaterally Cardiovascular Exam: Present: tachycardia GI/Abdominal exam: Present: soft. Absent: tenderness Extremities exam: Present: normal inspection Neurological exam: Present: alert Psychiatric exam: Present: normal affect, normal mood Skin exam: Present: normal color <Elie Pena - Last Filed: 10/23/23 13:43> - General Exam Comments Initial Comments: Visual Physical Exam Vital signs reviewed General: Uncomfortable appearing no acute distress. Head: Normocephalic, atraumatic Eyes: PERRLA, EOMI ENT: Airway patent Chest: Nonlabored breathing Skin: No visual rash, normal skin tone Neuro: Alert and oriented 3 Musculoskeletal: No gross abnormalities (Madison Martin) Course Vital Signs 10/23/23 10/23/23 01:23 11:25 Temperature 98.4 F 97.9 F Pulse Rate 133 H 67 Respiratory 18 18 Rate Blood Pressure 132/73 167/76 O2 Sat by Pulse 98 99 Oximetry Medical Decision Making <Madison Martin - Last Filed: 10/23/23 00:07> - Lab Data Result diagrams: 10/23/23 08:33 10/23/23 08:33 <Elie Pena - Last Filed: 10/23/23 13:43> - Medical Decision Making I performed the quick note portion of the exam. Electronically signed by Madison Martin PA-C (Madison Martin) Was pt. sent in by a medical professional or institution (SHAKILA Steele, FUR BLOWING MACHINE OPERATOR, urgent care, hospital, or usp...) When possible be specific @ -No Did you speak to anyone other than the patient for history (EMS, parent, family, police, friend...)? What history was obtained from this source @ -No Did you review nursing and triage notes (agree or disagree)? Why? @ -I reviewed and agree with nursing and triage notes Were old charts reviewed (outside hosp., previous admission, EMS record, old EKG, old radiological studies, urgent care reports/EKG's, usp records)? Report findings @ -No old charts were reviewed Differential Diagnosis (chest pain, altered mental status, abdominal pain women, abdominal pain men, vaginal bleeding, weakness, fever, dyspnea, syncope, headache, dizziness, GI bleed, back pain, seizure, CVA, palpatations, mental health, musculoskeletal)? @ -Differential Dizziness: Benign paroxysmal positional Vertigo, Menieres disease, otitis media, acoustic neuroma, vertebrobasilar insufficiency, cerebellar stroke, encephalitis, hypovolemic, arrhythmia, coronary artery syndrome, anemia, this is not meant to be an all-inclusive list EKG interpreted by me (3pts min.). @ -As above X-rays interpreted by me (1pt min.). @ -None done CT interpreted by me (1pt min.). @ -None done U/S interpreted by me (1pt. min.). @ -None done What testing was considered but not performed or refused? (CT, X-rays, U/S, labs)? Why? @ -None What meds were considered but not given or refused? Why? @ -None Did you discuss the management of the patient with other professionals (professionals i.e. , PA, FUR BLOWING MACHINE OPERATOR, lab, RT, psych nurse, long term care social worker, fashion consultant selling, teacher, signals officer, machine adjuster leader case trim)? Give summary @ -No Was smoking cessation discussed for >3mins.? @ -No Was critical care preformed (if so, how long)? @ -No Were there social determinants of health that impacted care today? How? (Homelessness, low income, unemployed, alcoholism, drug addiction, transportation, low edu. Level, literacy, decrease access to med. care, prison, rehab)? @ -No Was there de-escalation of care discussed even if they declined (Discuss DNR or withdrawal of care, Hospice)? DNR status @ -No What co-morbidities impacted this encounter? (DM, HTN, Smoking, COPD, CAD, Cancer, CVA, ARF, Chemo, Hep., AIDS, mental health diagnosis, sleep apnea, morbid obesity)? @ -None Was patient admitted / discharged? Hospital course, mention meds given and route, prescriptions, significant lab abnormalities, going to OR and other p ertinent info. @ -Patient reevaluated and feeling better following Ativan and fluids. ciwa 6. Vital signs improved. Patient comfortable with discharge home. Patient updated and results and need for follow-up as well as recommended alcohol facility. Undiagnosed new problem with uncertain prognosis? @ -No Drug Therapy requiring intensive monitoring for toxicity (Heparin, Nitro, Insulin, Cardizem)? @ -No Were any procedures done? @ -No Diagnosis/symptom? @ -Alcohol withdrawal Acute, or Chronic, or Acute on Chronic? @ -Acute Uncomplicated (without systemic symptoms) or Complicated (systemic symptoms)? @ -default Side effects of treatment? @ -No Exacerbation, Progression, or Severe Exacerbation? @ -No Poses a threat to life or bodily function? How? (Chest pain, [place], [place], pneumonia, PE, COPD, DKA, ARF, appy, cholecystitis, CVA, Diverticulitis, Homicidal, Suicidal, threat to staff... and all critical care pts) @ -No (Elie Pena) - Lab Data Lab Results 10/23/23 10/23/23 Range/Units 08:33 08:33 WBC 7.2 (3.8-10.6) k/uL RBC 4.54 (3.80-5.40) m/uL Hgb 14.4 (11.4-16.0) gm/dL Hct 42.4 (34.0-46.0) % MCV 93.3 (80.0-100.0) fL MCH 31.6 (25.0-35.0) pg MCHC 33.9 (31.0-37.0) g/dL RDW 14.8 (11.5-15.5) % Plt Count 213 (150-450) k/uL MPV 7.4 Neutrophils % 75 % Lymphocytes % 16 % Monocytes % 6 % Eosinophils % 1 % Basophils % 1 % Neutrophils # 5.5 (1.3-7.7) k/uL Lymphocytes # 1.1 (1.0-4.8) k/uL Monocytes # 0.4 (0-1.0) k/uL Eosinophils # 0.1 (0-0.7) k/uL Basophils # 0.0 (0-0.2) k/uL Sodium 137 (137-145) mmol/L Potassium 4.3 (3.5-5.1) mmol/L Chloride 95 L (98-107) mmol/L Carbon Dioxide 19 L (22-30) mmol/L Anion Gap 23 mmol/L BUN 11 (7-17) mg/dL Creatinine 0.81 (0.52-1.04) mg/dL Est GFR (CKD-EPI)AfAm >90 (>60 ml/min/1.73 sqM) Est GFR (CKD-EPI)NonAf 89 (>60 ml/min/1.73 sqM) Glucose 67 L (74-99) mg/dL Calcium 9.3 (8.4-10.2) mg/dL Magnesium 2.2 (1.6-2.3) mg/dL Total Bilirubin 0.9 (0.2-1.3) mg/dL AST 137 H (14-36) U/L ALT 70 H (4-34) U/L Alkaline Phosphatase 104 (38-126) U/L Total Protein 8.4 H (6.3-8.2) g/dL Albumin 5.0 (3.5-5.0) g/dL Serum Alcohol 156 mg/dL Disposition <Madison Martin - Last Filed: 10/23/23 00:07> Is patient prescribed a controlled substance at d/c from ED?: No Time of Disposition: 13:43 <Elie Pena - Last Filed: 10/23/23 13:43> Clinical Impression: Alcohol withdrawal syndrome Disposition: HOME SELF-CARE Condition: Stable Instructions (If sedation given, give patient instructions): Alcohol Withdrawal (ED) Additional Instructions: Discontinue alcohol use. Consider follow-up with alcohol withdrawal. Facility is you're planning. Return for uncontrolled vomiting, shaking, confusion, worsening or change in symptoms or any other concerns. Referrals: None,Stated [Primary Care Provider] - 1-2 days Forms: Outpatient Counseling, Inp Substance Abuse Facilities, Area PCPs
[2023-10-23] MEDS ORDERED: THIAMINE 100 MG/ML 2 ML VIAL IM STA (08:16)
[2023-10-23] MEDS ORDERED: LORazepam 2 MG/ML INJ IV STA ×2 (08:16→12:30)
[2023-10-23] MEDS ORDERED: SODIUM CHLORIDE 0.9% 1,000 ML IV STA (08:16)
[2023-10-23] MEDS ORDERED: ONDANSETRON 4 MG/2 ML VIAL IVP STA (08:25)
[2023-10-23] MEDS ORDERED: FAMOTIDINE 20 MG/2 ML VIAL IV STA (08:25)
[2023-10-23 08:52] LABS: Basophils % (A) 1 %; Eosinophils # (A) 0.1 k/uL (0-0.7); Eosinophils % (A) 1 %; HCT 42.4 % (34.0-46.0); HGB 14.4 gm/dL (11.4-16.0); Lymphocytes # (A) 1.1 k/uL (1.0-4.8); Lymphocytes % (A) 16 %; MCH 31.6 pg (25.0-35.0); MCHC 33.9 g/dL (31.0-37.0); MCV 93.3 fL (80.0-100.0); Mean Platelet Volume 7.4; Monocytes # (A) 0.4 k/uL (0-1.0); Monocytes % (A) 6 %; Neutrophils # (A) 5.5 k/uL (1.3-7.7); Neutrophils % (A) 75 %; Platelet Count 213 k/uL (150-450); RBC 4.54 m/uL (3.80-5.40); RDW 14.8 % (11.5-15.5); WBC 7.2 k/uL (3.8-10.6)
[2023-10-23 09:08] LABS: ALT 70 U/L (4-34); AST 137 U/L (14-36); African American GFR (CKD) >90 (>60 ml/min/1.73 sqM); Alkaline Phosphatase 104 U/L (38-126); Anion Gap 23 mmol/L; Blood Urea Nitrogen 11 mg/dL (7-17); Calcium 9.3 mg/dL (8.4-10.2); Carbon Dioxide 19 mmol/L (22-30); Chloride 95 mmol/L (98-107); Glucose 67 mg/dL (74-99); Magnesium 2.2 mg/dL (1.6-2.3); Non-African American GFR(CKD) 89 (>60 ml/min/1.73 sqM); Potassium 4.3 mmol/L (3.5-5.1); Sodium 137 mmol/L (137-145); Total Bilirubin 0.9 mg/dL (0.2-1.3); Total Protein 8.4 g/dL (6.3-8.2)
[2023-10-23 09:15] LABS: Alcohol 156 mg/dL
[2023-10-23] MEDS ORDERED: LORazepam 1 MG TAB PO STA (13:38)
[2023-10-23 14:36] VITALS: BP 125/85; PULSE 78; RESP 16; TEMP 98.2
== END 2023-10-23 14:26 | disposition home or self-care (01) ==
LOC: EC 23:51
DX: F10.239 Alcohol dependence with withdrawal, unspecified (principal); F17.200 Nicotine dependence, unspecified, uncomplicated; Y90.6 Blood alcohol level of 120-199 mg/100 ml
CPT/HCPCS: 36415; 80053; 83735; 85025; 99284; 96374; 96375 ×2; 96376; 96361; 96372; G0480; J2060; J3411; J2405; J3490; 80320

== ENCOUNTER 2025-03-27 22:27 | Inpatient (IN) | payer OTHER ==
[2025-03-27] MEDS ORDERED: LORazepam 1 MG/0.5 ML VIAL IV PRN ×2 (23:40)
[2025-03-27] MEDS ORDERED: LORazepam 0.5 MG TAB PO PRN (23:40)
[2025-03-27] MEDS: LORazepam 1 MG/0.5 ML VIAL IV STA (23:49)
[2025-03-27] MEDS: SODIUM CHLORIDE 0.9% 1,000 ML IV STA (23:50)
[2025-03-27 23:59] LABS: Basophils # (A) 0.06 10*3/uL (0.00-0.10); Basophils % (A) 1.1 %; Eosinophils # (A) 0.18 10*3/uL (0.04-0.35); Eosinophils % (A) 3.3 %; HCT 42.8 % (37.2-46.3); HGB 15.7 g/dL (12.0-15.0); Lymphocytes # (A) 2.72 10*3/uL (0.90-5.00); Lymphocytes % (A) 50.4 %; MCH 33.4 pg (27.0-32.0); MCHC 36.7 g/dL (32.0-37.0); MCV 91.1 fL (80.0-97.0); Mean Platelet Volume 8.6 fL (9.5-12.2); Monocytes # (A) 0.48 10*3/uL (0.20-1.00); Monocytes % (A) 8.9 %; Neutrophils # (A) 1.95 10*3/uL (1.80-7.70); Neutrophils % (A) 36.1 %; Platelet Count 361 10*3/uL (140-440); RDW 13.8 % (11.5-14.5)
[2025-03-28 00:02] LABS: Appearance,Urine Clear (Clear); Bilirubin,Urine Negative (Negative); Blood,Urine Small (Negative); Color,Urine Colorless; Glucose,Urine (UA) Negative (Negative); Ketones,Urine Negative (Negative); Leukocyte Esterase,Urine Negative (Negative); Nitrite,Urine Negative (Negative); PH, Urine 5.5 (5.0-8.0); Protein,Urine Negative (Negative); RBC,Urine <1 /hpf (0-5); Specific Gravity,Urine 1.003 (1.001-1.035); Squamous Epithelial Cell,Urine 2 /hpf (0-4); Urobilinogen,Urine <2.0 mg/dL (<2.0); WBC,Urine <1 /hpf (0-5)
[2025-03-28 00:10] LABS: Anion Gap 15 mmol/L; Blood Urea Nitrogen 3 mg/dL (7-17); Carbon Dioxide 23 mmol/L (22-30); Chloride 106 mmol/L (98-107); Glucose 78 mg/dL (74-99); Potassium 4.3 mmol/L (3.5-5.1); Sodium 144 mmol/L (137-145)
[2025-03-28 00:11] LABS: ALT 21 U/L (4-34); AST 44 U/L (14-36); African American GFR (CKD) >90 (>60 ml/min/1.73 sqM); Albumin 4.7 g/dL (3.5-5.0); Alkaline Phosphatase 85 U/L (38-126); Calcium 9.4 mg/dL (8.4-10.2); Lipase 87 U/L (23-300); Magnesium 2.3 mg/dL (1.6-2.3); Non-African American GFR(CKD) 89 (>60 ml/min/1.73 sqM); Phosphorus 3.2 mg/dL (2.5-4.5); Total Bilirubin 0.4 mg/dL (0.2-1.3); Total Protein 7.8 g/dL (6.3-8.2)
--- NOTE | 2025-03-28 00:26 | ED ---
General Adult HPI - General Chief complaint: Alcohol Stated complaint: Detox-ETOH Time Seen by Provider: 03/27/25 22:39 Source: patient, RN notes reviewed, old records reviewed Mode of arrival: ambulatory Limitations: no limitations - History of Present Illness Initial comments: 44-year-old female presents for alcohol detoxification. States she has been trying to get in touch with an alcohol rehab for the last 3 months but has not had any luck. Reports she wants to quit alcohol. States whenever she stops drinking she starts to get severe withdrawal symptoms which is caused her to continue drinking over this time. Notes that this morning she had 3 tall boy beers but otherwise reports no other alcohol intake today. States she also used a marijuana vape denies any other illicit drug use. Denies any other symptoms at this time. - Related Data Home Medications Medication Instructions Recorded Confirmed No Known Home Medications 10/23/23 10/23/23 Allergies Allergy/AdvReac Type Severity Reaction Status Date / Time No Known Allergies Allergy Verified 03/27/25 23:03 Review of Systems ROS Statement: Those systems with pertinent positive or pertinent negative responses have been documented in the HPI. ROS Other: All systems not noted in ROS Statement are negative. Past Medical History Past Medical History: Hyperlipidemia Additional Past Medical History / Comment(s): alcoholic. pt has had seizures with past detox History of Any Multi-Drug Resistant Organisms: None Reported Past Surgical History: No Surgical Hx Reported Past Anesthesia/Blood Transfusion Reactions: No Reported Reaction Additional Past Anesthesia/Blood Transfusion Reaction / Comment(s): ;[place] in a 2 story house (w/daughter) has 4-5 front steps. 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 Past Psychological History: Anxiety, Depression Smoking Status: Current every day smoker Past Alcohol Use History: Abuse, Daily, Heavy Past Drug Use History: None Reported - Past Family History Father Family Medical History: Coronary Artery Disease (CAD) Mother Family Medical History: No Reported History General Exam - General Exam Comments Initial Comments: GENERAL: This is a -year-old in no apparent distress at the time of examination. Pleasant and cooperative. HEENT: Head is atraumatic, normocephalic. Pupils are equal, round, and reactive to light. Sclerae anicteric. Conjunctivae are clear. Mucus membranes of the mouth are moist. Neck is supple. RESPIRATORY: Clear to auscultation. No wheezes, rales, or rhonchi. No use of accessory muscles. Patient maintaining oxygen saturation greater than 92%. No chest wall tenderness is noted on palpation or with deep breathing. CARDIOVASCULAR: Regular rate and rhythm. S1 and S2 noted. No systolic or diastolic murmur auscultated. No JVD noted. No S3 or S4 noted. GASTROINTESTINAL: No distention noted. Abdomen soft and round. Normal active bowel sounds auscultated x 4 quadrants. No pain or tenderness noted upon palpation. INTEGUMENTARY: No cyanosis. No jaundice. No rashes noted. No cellulitis noted. EXTREMITIES: 2+ peripheral pulses. No evidence of peripheral edema. No calf tenderness noted. NEUROLOGIC: Cranial nerves II-XII intact. No evidence of delirium tremens. PSYCHIATRIC: Awake, alert, and oriented X 3. Appropriate affect. Intact judgement and insight. Limitations: no limitations Course Vital Signs 03/27/25 22:54 Temperature 98.3 F Pulse Rate 109 H Respiratory 20 Rate Blood Pressure 120/82 O2 Sat by Pulse 94 L Oximetry Medical Decision Making - Medical Decision Making Was pt. sent in by a medical professional or institution (, PA, FISH LIVER SORTER, urgent care, hospital, or skilled nursing...) When possible be specific @ -No Did you speak to anyone other than the patient for history (EMS, parent, family, police, friend...)? What history was obtained from this source @ -No Did you review nursing and triage notes (agree or disagree)? Why? @ -I reviewed and agree with nursing and triage notes Were old charts reviewed (outside hosp., previous admission, EMS record, old EKG, old radiological studies, urgent care reports/EKG's, skilled nursing records)? Report findings @ -No old charts were reviewed Differential Diagnosis? @ -Alcohol withdrawal, sedativehypnotic withdrawal, stimulant intoxication, opioid withdrawal, hypoglycemia, electrolyte disturbance, sepsis, hypothyroidism, does not meant to be a fully inclusive list. EKG interpreted by me (3pts min.). @ -As above X-rays interpreted by me (1pt min.). @ -None done CT interpreted by me (1pt min.). @ -None done U/S interpreted by me (1pt. min.). @ -None done What testing was considered but not performed or refused? (CT, X-rays, U/S, labs)? Why? @ -None What meds were considered but not given or refused? Why? @ -None Did you discuss the management of the patient with other professionals (professionals i.e. , PA, FISH LIVER SORTER, lab, RT, psych nurse, social services director, betting clerks, teacher, tax revenue officer, therapeutic case manager)? Give summary @ -No Was smoking cessation discussed for >3mins.? @ -No Was critical care preformed (if so, how long)? @ -No Were there social determinants of health that impacted care today? How? (Homelessness, low income, unemployed, alcoholism, drug addiction, transportation, low edu. Level, literacy, decrease access to med. care, halfway, rehab)? @ -No Was there de-escalation of care discussed even if they declined (Discuss DNR or withdrawal of care, Hospice)? DNR status @ -No What co-morbidities impacted this encounter? (DM, HTN, Smoking, COPD, CAD, Cancer, CVA, ARF, Chemo, Hep., AIDS, mental health diagnosis, sleep apnea, morbid obesity)? @ -None Was patient admitted / discharged? Hospital course, mention meds given and route, prescriptions, significant lab abnormalities, going to OR and other pertinent info. @ -Admitted, alcohol level was found to be 350, patient placed on CIWA protocol and admitted to [facility] physician. Dr. Chaap spoke with [facility] physician on-call who accepted the admission. Undiagnosed new problem with uncertain prognosis? @ -No Drug Therapy requiring intensive monitoring for toxicity (Heparin, Nitro, Insulin, Cardizem)? @ -No Were any procedures done? @ -No Diagnosis/symptom? @ -Alcohol withdrawal syndrome Acute, or Chronic, or Acute on Chronic? @ -Default Uncomplicated (without systemic symptoms) or Complicated (systemic symptoms)? @ -Default Side effects of treatment? @ -No Exacerbation, Progression, or Severe Exacerbation? @ -No Poses a threat to life or bodily function? How? (Chest pain, [place], [place], pneumonia, PE, COPD, DKA, ARF, appy, cholecystitis, CVA, Diverticulitis, Homicidal, Suicidal, threat to staff... and all critical care pts) @ -Yes, alcohol withdrawal can lead to severe seizures which can lead to permanent neurologic damage. - Lab Data Result diagrams: 03/27/25 23:45 03/27/25 23:45 Lab Results 03/27/25 03/27/25 03/27/25 Range/Units 23:45 23:45 23:45 WBC 5.40 (4.50-10.00) 10*3/uL RBC 4.70 (4.10-5.20) 10*6/uL Hgb 15.7 H (12.0-15.0) g/dL Hct 42.8 (37.2-46.3) % MCV 91.1 (80.0-97.0) fL MCH 33.4 H (27.0-32.0) pg MCHC 36.7 (32.0-37.0) g/dL Plt Count 361 (140-440) 10*3/uL MPV 8.6 L (9.5-12.2) fL Immature Gran % (Auto) 0.2 % Neutrophils % 36.1 % Lymphocytes % 50.4 % Monocytes % 8.9 % Eosinophils % 3.3 % Basophils % 1.1 % Immature Gran # 0.01 (0.00-0.04) 10*3/uL Neutrophils # 1.95 (1.80-7.70) 10*3/uL Lymphocytes # 2.72 (0.90-5.00) 10*3/uL Monocytes # 0.48 (0.20-1.00) 10*3/uL Eosinophils # 0.18 (0.04-0.35) 10*3/uL Basophils # 0.06 (0.00-0.10) 10*3/uL Sodium 144 (137-145) mmol/L Potassium 4.3 (3.5-5.1) mmol/L Chloride 106 (98-107) mmol/L Carbon Dioxide 23 (22-30) mmol/L Anion Gap 15 mmol/L BUN 3 L (7-17) mg/dL Creatinine 0.80 (0.52-1.04) mg/dL Est GFR (CKD-EPI)AfAm >90 (>60 ml/min/1.73 sqM) Est GFR (CKD-EPI)NonAf 89 (>60 ml/min/1.73 sqM) Glucose 78 (74-99) mg/dL Calcium 9.4 (8.4-10.2) mg/dL Phosphorus 3.2 (2.5-4.5) mg/dL Magnesium 2.3 (1.6-2.3) mg/dL Total Bilirubin 0.4 (0.2-1.3) mg/dL AST 44 H (14-36) U/L ALT 21 (4-34) U/L Alkaline Phosphatase 85 (38-126) U/L Total Protein 7.8 (6.3-8.2) g/dL Albumin 4.7 (3.5-5.0) g/dL Lipase 87 (23-300) U/L Urine Color Colorless Urine Appearance Clear (Clear) Urine pH 5.5 (5.0-8.0) Ur Specific [place] 1.003 (1.001-1.035) Urine Protein Negative (Negative) Urine Glucose (UA) Negative (Negative) Urine Ketones Negative (Negative) Urine Blood Small H (Negative) Urine Nitrite Negative (Negative) Urine Bilirubin Negative (Negative) Urine Urobilinogen <2.0 (<2.0) mg/dL Ur Leukocyte Esterase Negative (Negative) Urine RBC <1 (0-5) /hpf Urine WBC <1 (0-5) /hpf Ur Squamous Epith Cells 2 (0-4) /hpf Serum Alcohol 350 H* mg/dL Disposition Clinical Impression: Alcohol withdrawal syndrome Disposition: ADMITTED IP TO THIS HOSP Referrals: None,Stated [Primary Care Provider] - 1-2 days
[2025-03-28 00:33] LABS: Alcohol 350 mg/dL
[2025-03-28] MEDS ORDERED: NALOXONE 0.4 MG/ML 1 ML VIAL IV PRN (00:36)
[2025-03-28 00:51] LABS: Amphetamine Screen,Urine Not Detected (NotDetected); Barbiturate Screen,Urine Not Detected (NotDetected); Benzodiazepines Screen,Urine Detected (NotDetected); Cocaine Screen,Urine Not Detected (NotDetected); Methadone Screen, Urine Not Detected (NotDetected); Opiate Screen,Urine Not Detected (NotDetected); Oxycodone Screen, Urine Not Detected (NotDetected); Phencyclidine Screen,Urine Not Detected (NotDetected); Tricyclic Antidepressant,Urine Not Detected (NotDetected); Urn Cannabinoid Scrn Not Detected (NotDetected)
[2025-03-28] MEDS: SODIUM CHLORIDE 0.9% 500 ML 500 ML IV STA (03:00)
[2025-03-28] MEDS: LORazepam 1 MG TAB PO PRN ×3 (06:19→22:20)
--- NOTE | 2025-03-28 08:36 | P.HPIM ---
History of Present Illness H&P Date: 03/28/25 Chief Complaint: Alcohol withdrawal and request for detox assistance. 44 year old female with alcohol abuse presents with alcohol withdrawal symptoms. Patient reports heavy drinking for the past 2 months, with the last drink being 3 tall beers yesterday morning. She has been attempting to quit but experiences severe withdrawal symptoms, leading to resumed drinking. Patient has been trying to enter rehab but has faced difficulties due to insurance and paperwork issues. Current symptoms include diarrhea, feeling hot, and sinus pain. Patient denies any other medical issues. History of alcohol withdrawal seizures. Patient denies any other medical problems. Patient reports heavy alcohol use for the past 2 months. She has been attempting to enter rehab but has faced difficulties due to insurance and paperwork issues [place]. No smoking or drug use reported. review of systems General: Feeling hot, 'on fire, melting'. Gastrointestinal: Diarrhea. ENT: Sinus pain, nasal congestion, sore throat. Neurological: History of alcohol withdrawal seizures, denies current seizures. Psychiatric: Denies hallucinations or tactile sensations. Cardiovascular: Elevated blood pressure noted. Respiratory: Denies cough. Skin: Denies feeling of anything crawling on skin. on exam Constitutional: No acute distress, anxious cooperative Eyes: Anicteric sclerae, moist conjunctiva, Pupils equal round reactive to light ENMT: NC/AT Oropharynx clear, no erythema, or exudates Neck: Supple, no masses, or JVD No carotid bruits No thyromegaly Lungs: Clear to auscultation Clear to percussion Normal respiratory effort, no accessory muscle use Cardiovascular: Heart regular in rate and rhythm, No murmurs, gallops, or rubs No peripheral edema Abdominal: Soft Nontender, no guarding, rebound or rigidity Abdomen moving with respiration Normoactive bowel sounds Extremities: No digital cyanosis No clubbing Pedal pulses intact and symmetrical Radial pulses intact and symmetrical No calf tenderness Psychiatric: Alert and oriented to person, place and time Neuro Muscles Strength 5/5 in all 4 extremities Sensation to light touch grossly present throughout Cranial nerves II-XII grossly intact Past Medical History Past Medical History: Hyperlipidemia Additional Past Medical History / Comment(s): alcoholic. pt has had seizures with past detox History of Any Multi-Drug Resistant Organisms: None Reported Past Surgical History: No Surgical Hx Reported Past Anesthesia/Blood Transfusion Reactions: No Reported Reaction Additional Past Anesthesia/Blood Transfusion Reaction / Comment(s): ;[place] in a 2 story house (w/daughter) has 4-5 front steps. 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 Past Psychological History: Anxiety, Depression Smoking Status: Current every day smoker Past Alcohol Use History: Abuse, Daily, Heavy Past Drug Use History: None Reported - Past Family History Father Family Medical History: Coronary Artery Disease (CAD) Mother Family Medical History: No Reported History Medications and Allergies Home Medications Medication Instructions Recorded Confirmed Type No Known Home Medications 10/23/23 03/28/25 History Allergies Allergy/AdvReac Type Severity Reaction Status Date / Time No Known Allergies Allergy Verified 03/28/25 07:02 Physical Exam Vitals: Vital Signs Temp Pulse Resp BP Pulse Ox 03/28/25 06:00 105 H 20 133/93 98 03/27/25 22:54 98.3 F 109 H 20 120/82 94 L Intake and Output 03/27/25 03/28/25 03/28/25 22:59 06:59 14:59 Other: Weight 58.967 kg Results CBC & Chem 7: 03/27/25 23:45 03/27/25 23:45 Labs: Abnormal Lab Results - Last 24 Hours (Table) 03/27/25 03/27/25 03/27/25 Range/Units 23:45 23:45 23:45 Hgb 15.7 H (12.0-15.0) g/dL MCH 33.4 H (27.0-32.0) pg MPV 8.6 L (9.5-12.2) fL BUN 3 L (7-17) mg/dL AST 44 H (14-36) U/L Urine Blood Small H (Negative) U Benzodiazepines Scrn Detected H (NotDetected) Serum Alcohol 350 H* mg/dL Assessment and Plan Assessment: 44 year old female with alcohol abuse , presented for alcohol detox I discussed the case with ED doc and I accepted the admission for alcohol withdrawal syndrome Alcohol Withdrawal Syndrome Patient presenting with symptoms consistent with alcohol withdrawal, including elevated blood pressure, feeling hot, diarrhea, and sinus pain. History of alcohol withdrawal seizures increases risk for complications. benzo per ciwa Admit for inpatient alcohol detoxification. Initiate IV fluid hydration with added vitamins, particularly thiamine. Monitor vital signs closely, especially for signs of severe withdrawal. Assess for electrolyte imbalances and correct as needed. Provide supportive care for symptomatic relief (anti-diarrheal medications, antipyretics as needed). Consult social professionals for ongoing management and transition to rehabilitation services. Educate patient on the dangers of alcohol withdrawal and the importance of medical supervision during detoxification. Arrange for follow-up care and connection to outpatient addiction services upon discharge. Monitor closely for signs of withdrawal seizures or delirium tremens. Ensure safe environment to prevent falls or injury during withdrawal period. Discuss the typical course of alcohol withdrawal, emphasizing that symptoms usually peak within 72 hours and begin to improve after 5-7 days. Stress the importance of completing the full detoxification process and transitioning to a rehabilitation program for long-term recovery support. ETOH in blood 350 elevated full code dvt ppx lovenox sc 40 mg daily blood work over all unremarkable WBC 5 Hgb 15 Ca 9.4 Mg 2.4 BUN 3 Cr 0.8 UA unremarkable
[2025-03-28] MEDS: THIAMINE 100 MG TAB PO SCH (08:54)
[2025-03-28] MEDS: SODIUM CHLORIDE 0.9% 1,000 ML IV SCH (08:54)
[2025-03-28] MEDS: ENOXAPARIN 40 MG/0.4 ML SYRINGE SQ SCH (08:54)
[2025-03-28] MEDS: ONDANSETRON 4 MG/2 ML VIAL IVP PRN (13:55)
[2025-03-28] MEDS: traZODone HCL 50 MG TAB PO SCH (22:20)
[2025-03-28] MEDS: FAMOTIDINE 20 MG TAB PO PRN (22:20)
[2025-03-29] MEDS: ESCITALOPRAM 10 MG TAB PO SCH (09:20)
[2025-03-29] MEDS: LORazepam 1 MG/0.5 ML VIAL IV PRN (12:54)
--- NOTE | 2025-03-29 14:13 | P.PN ---
Subjective Progress Note Date: 03/29/25 Patient was seen and examined. Complains of withdrawal symptoms. Reports nausea but no vomiting. 9 mg of PO Ativan and 1 mg of IV ativan over the past 24H. General: not toxic, no distress, appears at stated age Derm: warm, dry Head: atraumatic, normocephalic, symmetric Eyes: EOMI, no lid lag, anicteric sclera Mouth: no lip lesion, mucus membranes moist Cardiovascular: S1 S2 reg. No murmurs. Lungs: Clear to auscultation bilaterally. Ext: no gross muscle atrophy, no edema, no contractures. Tremors outstretched hands. Neuro: no focal neuro deficits Psych: Alert, oriented Based on my assessment of this patient, this patient meets a high complexity level of care. Alcohol withdrawal: Ativan PO and IV PRN per CIWA scale. Add Librium 25 mg PO TID. Thiamine 100 mg PO QD. NS at 100 cc/hr. Anticipate DC to [facility] if withdrawal symptoms better controlled in 1-2 days. CODE STATUS: FULL CODE DVT Prophylaxis: Lovenox SQ GI Prophylaxis: Protonix PO Designated medical POA if patient is not able to make medical decisions for themselves: I have reviewed the following moving consultant notes: I have reviewed the results of the following tests: I have ordered the following tests: CBC and BMP in the AM. I have discussed the care of this patient with the following independent historian: RN. Case management. I have independently interpreted the following test below: I have discussed the management of this patient with the following physician: Objective - Vital Signs Vital signs: Vital Signs Temp 97.7 F 03/29/25 13:12 Pulse 66 03/29/25 13:12 Resp 16 03/29/25 13:12 BP 135/91 03/29/25 13:12 Pulse Ox 93 L 03/29/25 13:12 FiO2 Intake & Output 03/28/25 03/29/25 03/29/25 18:59 06:59 18:59 Intake Total 1000 200 Balance 1000 200 Weight 58.967 kg Intake: Intake, IV Titration 1000 Amount Sodium Chloride 0.9% 1, 1000 000 ml @ 100 mls/hr IV . Q10H CHAY[facility]O Rx#:[id number] Oral 200 Other: # Voids 2 4 - Labs CBC & Chem 7: 03/27/25 23:45 03/27/25 23:45
[2025-03-29] MEDS: PANTOPRAZOLE 40 MG TABLET PO SCH (17:37)
[2025-03-29] MEDS: chlordiazePOXIDE 25 MG CAP PO SCH (17:37)
[2025-03-30 05:18] LABS: HCT 37.5 % (37.2-46.3); HGB 13.2 g/dL (12.0-15.0); MCH 32.8 pg (27.0-32.0); MCHC 35.2 g/dL (32.0-37.0); MCV 93.3 fL (80.0-97.0); Mean Platelet Volume 8.9 fL (9.5-12.2); Platelet Count 255 10*3/uL (140-440); RBC 4.02 10*6/uL (4.10-5.20); RDW 13.5 % (11.5-14.5); WBC 4.18 10*3/uL (4.50-10.00)
[2025-03-30 05:32] LABS: African American GFR (CKD) >90 (>60 ml/min/1.73 sqM); Anion Gap 5 mmol/L; Blood Urea Nitrogen 3 mg/dL (7-17); Carbon Dioxide 25 mmol/L (22-30); Chloride 105 mmol/L (98-107); Glucose 88 mg/dL (74-99); Non-African American GFR(CKD) >90 (>60 ml/min/1.73 sqM); Potassium 3.7 mmol/L (3.5-5.1); Sodium 135 mmol/L (137-145)
[2025-03-30 08:07] VITALS: BP 142/91; PULSE 70; RESP 14; TEMP 98
--- NOTE | 2025-03-30 16:40 | P.DS ---
Providers Date of admission: 03/28/25 00:36 Expected date of discharge: 03/30/25 Attending physician: Keira Avery MD Primary care physician: Stated None Hospital Course: 44 year old F with PMH of EtOH abuse presents to the ED for alcohol intoxication. In the ED she underwent extensive evaluation. BP 120/82, T 98.3F, HR 109, RR 20, 94% on RA. Labs significant for Hg 15.7, BUN 3, AST 44, UA small blood, UDS + benzo, EtOH 350. Patient was placed on CIWA protocol and given Ativan PRN. Librium was added. Her symptoms improved. 03/30 Patient was seen and examined. Reports some nausea but no other symptoms. Initially plans for discharge to [place] but she has made an appointment at another facility with intake on Friday. CBC and BMP significant for WBC 4.18, RBC 4.02, Na 135, BUN 3. Discharge Plans: Plans for discharge on Librium x 3 days PRN for withdrawal symptoms until she can get into rehab on Friday. Advised to NOT mix EtOH and Librium as it can lead to sudden . Also prescribed Pepcid for likely gastritis. General: not toxic, no distress, appears at stated age Derm: warm, dry Head: atraumatic, normocephalic, symmetric Eyes: EOMI, no lid lag, anicteric sclera Mouth: no lip lesion, mucus membranes moist Cardiovascular: S1 S2 reg. No murmurs. Lungs: Clear to auscultation bilaterally. Ext: no gross muscle atrophy, no edema, no contractures. Neuro: no focal neuro deficits Psych: Alert, oriented Discharge Diagnosis: Alcohol withdrawal Leukopenia and Transaminitis likely due to chronic EtOH abuse Depression Insomnia This complex discharge took 35 minutes to complete. Plan - Discharge Summary Discharge Rx Participant: Yes New Discharge Prescriptions: New traZODone HCL [Desyrel] 50 mg PO HS tab chlordiazePOXIDE HCl [Librium] 25 mg PO TID PRN #9 cap PRN Reason: Alcohol Withdrawal Famotidine [Pepcid] 20 mg PO BID PRN #60 tab PRN Reason: Dyspepsia Escitalopram [Lexapro] 10 mg PO DAILY tab Discharge Medication List Escitalopram [Lexapro] 10 mg PO DAILY tab 03/30/25 [Rx] Famotidine [Pepcid] 20 mg PO BID PRN #60 tab 03/30/25 [Rx] chlordiazePOXIDE HCl [Librium] 25 mg PO TID PRN #9 cap 03/30/25 [Rx] traZODone HCL [Desyrel] 50 mg PO HS tab 03/30/25 [Rx] Follow up Appointment(s)/Referral(s): None,Stated [Primary Care Provider] - 1-2 days (Jane has a physician list and prefers to schedule own appt. ) Patient Instructions/Handouts: Chlordiazepoxide (By mouth), Famotidine (By mouth), Abuse of Alcohol (DC), Alcohol Withdrawal (DC) Activity/Diet/Wound Care/Special Instructions: DO NOT MIX LIBRIUM AND ALCOHOL IT CAN LEAD TO SUDDEN . Patient to follow-up with [facility] for outpatient counseling/substance abuse counseling. Per patient she has an appt. on Friday with [facility]. Discharge/Stand Alone Forms: AA [facility], Outpatient Counseling, In Substance Abuse Facilities Discharge Disposition: HOME SELF-CARE
== END 2025-03-30 13:39 | disposition home or self-care (01) | DRG 775 ==
LOC: EC 22:27 → 5NMEDONC 03-28 00:36
PROVIDERS: ADMIT Internal Medicine; ATTEND Internal Medicine
DX: F10.229 Alcohol dependence with intoxication, unspecified (principal); Y90.8 Blood alcohol level of 240 mg/100 ml or more; E78.5 Hyperlipidemia, unspecified; F10.239 Alcohol dependence with withdrawal, unspecified; D72.819 Decreased white blood cell count, unspecified; F17.200 Nicotine dependence, unspecified, uncomplicated; F32.A Depression, unspecified; F41.9 Anxiety disorder, unspecified; G47.00 Insomnia, unspecified; K29.70 Gastritis, unspecified, without bleeding; R03.0 Elevated blood-pressure reading, without diagnosis of hypertension; R74.01 Elevation of levels of liver transaminase levels; R19.7 Diarrhea, unspecified; Z28.21 Immunization not carried out because of patient refusal
CPT/HCPCS: 36415; 80048; 80053; 80306; 80320; 81001; 83690; 83735; 84100; 85025; 85027; 85610; 96374; 99285

== ENCOUNTER 2025-05-01 17:49 | Emergency (ER) | payer OTHER ==
[2025-05-01 18:10] VITALS: BP 143/94; PULSE 90; RESP 18; TEMP 97.8
--- NOTE | 2025-05-01 19:05 | ED ---
Recheck HPI - General Chief Complaint: Recheck/Abnormal Lab/Rx Stated Complaint: Perscription refill Time Seen by Provider: 05/01/25 19:02 Source: patient, RN notes reviewed Mode of arrival: ambulatory Limitations: no limitations - History of Present Illness Initial Comments: 44-year-old female presenting for medication refill. States she has been out of her Lexapro for approximately 4 days and has been unable to establish with a PCP after recently moving. Also states she has recurring cold sores and has 1 currently due to stress. She is requesting Valtrex today as well. - Related Data Previous Rx's Medication Instructions Recorded Escitalopram [Lexapro] 10 mg PO DAILY tab 03/30/25 Famotidine [Pepcid] 20 mg PO BID PRN #60 tab 03/30/25 chlordiazePOXIDE HCl [Librium] 25 mg PO TID PRN #9 cap 03/30/25 traZODone HCL [Desyrel] 50 mg PO HS tab 03/30/25 Escitalopram [Lexapro] 10 mg PO DAILY 30 Days #30 tablet 05/01/25 valACYclovir HCL [Valtrex] 500 mg PO Q12H 3 Days #6 tablet 05/01/25 Allergies Allergy/AdvReac Type Severity Reaction Status Date / Time No Known Allergies Allergy Verified 03/28/25 07:02 Review of Systems ROS Statement: Those systems with pertinent positive or pertinent negative responses have been documented in the HPI. ROS Other: All systems not noted in ROS Statement are negative. Past Medical History Past Medical History: Hyperlipidemia Additional Past Medical History / Comment(s): alcoholic, pt has had seizures with past detox History of Any Multi-Drug Resistant Organisms: None Reported Past Surgical History: No Surgical Hx Reported Past Anesthesia/Blood Transfusion Reactions: No Reported Reaction Additional Past Anesthesia/Blood Transfusion Reaction / Comment(s): Has been staying with a friend in a duplex. Currently unemployed. Past Psychological History: Anxiety, Depression Smoking Status: Former smoker, Vaper Past Alcohol Use History: None Reported Past Drug Use History: None Reported - Past Family History Father Family Medical History: Coronary Artery Disease (CAD) Mother Family Medical History: No Reported History General Exam Limitations: no limitations General appearance: alert, in no apparent distress Head exam: Present: atraumatic, normocephalic, normal inspection Eye exam: Present: normal appearance, PERRL, EOMI. Absent: scleral icterus, conjunctival injection, periorbital swelling ENT exam: Present: mucous membranes moist. Absent: normal exam (Multiple crusted lesions present over lower lip) Neurological exam: Present: alert, oriented X3 Psychiatric exam: Present: normal affect, normal mood Skin exam: Present: warm, dry, intact, normal color. Absent: rash Course Vital Signs 05/01/25 18:06 Temperature 97.8 F Pulse Rate 90 Respiratory 18 Rate Blood Pressure 143/94 O2 Sat by Pulse 98 Oximetry Medical Decision Making - Medical Decision Making Was pt. sent in by a medical professional or institution (, SHAKILA, DIRECTOR [employer], urgent care, hospital, or long-term...) When possible be specific @ -No Did you speak to anyone other than the patient for history (EMS, parent, family, police, friend...)? What history was obtained from this source @ -No Did you review nursing and triage notes (agree or disagree)? Why? @ -I reviewed and agree with nursing and triage notes Were old charts reviewed (outside hosp., previous admission, EMS record, old EKG, old radiological studies, urgent care reports/EKG's, long-term records)? Report findings @ -No old charts were reviewed Differential Diagnosis (chest pain, altered mental status, abdominal pain women, abdominal pain men, vaginal bleeding, weakness, fever, dyspnea, syncope, headache, dizziness, GI bleed, back pain, seizure, CVA, palpatations, mental health, musculoskeletal)? @ -Not applicable EKG interpreted by me (3pts min.). @ -None X-rays interpreted by me (1pt min.). @ -None done CT interpreted by me (1pt min.). @ -None done U/S interpreted by me (1pt. min.). @ -None done What testing was considered but not performed or refused? (CT, X-rays, U/S, labs)? Why? @ -None What meds were considered but not given or refused? Why? @ -None Did you discuss the management of the patient with other professionals (professionals i.e. SHAKILA Steele, [employer]OR [employer], lab, RT, psych nurse, social services director, borematic operator, teacher, purchasing officer, foster care case manager)? Give summary @ -No Was smoking cessation discussed for >3mins.? @ -No Was critical care preformed (if so, how long)? @ -No Were there social determinants of health that impacted care today? How? (Homelessness, low income, unemployed, alcoholism, drug addiction, transportation, low edu. Level, literacy, decrease access to med. care, detention, rehab)? @ -No Was there de-escalation of care discussed even if they declined (Discuss DNR or withdrawal of care, Hospice)? DNR status @ -No What co-morbidities impacted this encounter? (DM, HTN, Smoking, COPD, CAD, Cancer, CVA, ARF, Chemo, Hep., AIDS, mental health diagnosis, sleep apnea, morbid obesity)? @ -None Was patient admitted / discharged? Hospital course, mention meds given and route, prescriptions, significant lab abnormalities, going to OR and other pertinent info. @ -Discharge. 44-year-old female presenting for refill on her Lexapro. Also requesting Valtrex for her active cold sore. Correct dosing confirmed with patient. Lexapro was refilled and patient was provided with prescription for Valtrex. Discussed with patient that she must follow-up with the PCP for further refills. Appropriate return precautions discussed. Case was discussed with my ED attending Dr. Pena Undiagnosed new problem with uncertain prognosis? @ -No Drug Therapy requiring intensive monitoring for toxicity (Heparin, Nitro, Insulin, Cardizem)? @ -No Were any procedures done? @ -No Diagnosis/symptom? @ -Encounter for medication refill, oral herpes simplex infection Acute, or Chronic, or Acute on Chronic? @ -Acute Uncomplicated (without systemic symptoms) or Complicated (systemic symptoms)? @ -Uncomplicated Side effects of treatment? @ -No Exacerbation, Progression, or Severe Exacerbation? @ -No Poses a threat to life or bodily function? How? (Chest pain, [place], [place], pneumonia, PE, COPD, DKA, ARF, appy, cholecystitis, CVA, Diverticulitis, Homicidal, Suicidal, threat to staff... and all critical care pts) @ -No Disposition Clinical Impression: Encounter for medication refill, Oral herpes simplex infection Disposition: HOME SELF-CARE Condition: Stable Instructions (If sedation given, give patient instructions): Oral Herpes Simplex Virus Infections (ED) Additional Instructions: Please return to the Emergency Department if symptoms worsen or any other concerns. Prescriptions: Escitalopram [Lexapro] 10 mg PO DAILY 30 Days #30 tablet valACYclovir HCL [Valtrex] 500 mg PO Q12H 3 Days #6 tablet Is patient prescribed a controlled substance at d/c from ED?: No Referrals: None,Stated [Primary Care Provider] - 1-2 days Forms: [facility] Area PCPs Time of Disposition: 19:05
== END 2025-05-01 19:12 | disposition home or self-care (01) ==
LOC: EC 17:49
DX: Z76.0 Encounter for issue of repeat prescription (principal); B00.2 Herpesviral gingivostomatitis and pharyngotonsillitis; F17.290 Nicotine dependence, other tobacco product, uncomplicated
CPT/HCPCS: 99283